=== PATIENT | female | born 1985 | race Caucasian/White ===

== ENCOUNTER 2016-11-22 22:15 | Emergency (ER) | payer OTHER ==
[~2016-11-22] VITALS: Ht 170.2 cm; Wt 99.8 kg
[~2016-11-22 22:15] MED LIST: ALBU17IN INH; LOVE0.8I SC; PERCOCET PO
[2016-11-22 22:16] VITALS: BP 107/53
[2016-11-22] MEDS ORDERED: ELIQ5TAB PO (22:23)
[2016-11-22] MEDS ORDERED: CYCL10TA PO (22:23)
[2016-11-22] MEDS ORDERED: NEUR800T PO (22:23)
[2016-11-22] MEDS ORDERED: ERYTHROMYCIN OPHTH OINT OS ONE (23:00)
[2016-11-22] MEDS ORDERED: ERYTOIN8 OS (23:21)
== END 2016-11-22 23:40 | disposition home or self-care (01) ==
LOC: M ED 23:10
DX: H10.32 Unspecified acute conjunctivitis, left eye (principal)

== ENCOUNTER 2017-03-23 18:20 | Emergency (ER) | payer OTHER ==
[~2017-03-23] VITALS: Ht 170.2 cm; Wt 106.7 kg
[~2017-03-23 18:20] MED LIST changes: +CYCL10TA PO; +ELIQ5TAB PO; +ERYTOIN8 OS; +NEUR800T PO
[2017-03-23 18:21] VITALS: BP 116/71
[2017-03-23] MEDS ORDERED: ALEV220C2 PO (18:40)
[2017-03-23] MEDS ORDERED: KETOROLAC 30 MG/ML VIAL (J1885) IV ONE (21:00)
[2017-03-23] MEDS ORDERED: NS 1,000 ML IV ONE (21:00)
[2017-03-23 21:50] LABS: BASO % 0.4 % (0.0-1.0); EOS # 0.2 K/mm3 (0.0-0.50); EOS % 2.3 % (0.0-3.0); LARGE UNSTAINED CELL # 0.1 K/mm3 (0.0-0.4); LARGE UNSTAINED CELL % 1.2 % (0.0-4.0); MEAN CORPUSCULAR HEMOGLOBIN 31.6 pg (27.0-33.0); MEAN CORPUSCULAR HGB CONC 34.3 g/dl (32.0-36.5); MONO # 0.5 K/mm3 (0.0-0.8); MONO % 4.5 % (0.0-5.0); NEUTROPHILS # 6.9 K/mm3 (1.8-7.7); NEUTROPHILS % 64.5 % (36.0-66.0); PLATELET COUNT, AUTOMATED 202 k/mm3 (150-450); RED CELL DISTRIBUTION WIDTH 14.4 % (11.5-14.5); WHITE BLOOD COUNT 10.7 K/mm3 (4.0-10.0)
[2017-03-23 22:01] LABS: CONTROL LINE HCG INT CTR LINE PRESENT
[2017-03-23 23:08] LABS: INR 1.03
[2017-03-23 23:31] LABS: ANION GAP 5 MEQ/L (8-16); BLOOD UREA NITROGEN 9 MG/DL (7-18); CALCIUM LEVEL 8.3 MG/DL (8.5-10.1); CARBON DIOXIDE LEVEL 26 MEQ/L (21-32); CHLORIDE LEVEL 109 MEQ/L (98-107); CREATININE FOR GFR 0.72 MG/DL (0.55-1.02); GLOMERULAR FILTRATION RATE > 60.0 (>60); GLUCOSE, FASTING 84 MG/DL (70-105); POTASSIUM SERUM 4.4 MEQ/L (3.5-5.1); SODIUM LEVEL 140 MEQ/L (136-145)
[2017-03-24] MEDS ORDERED: ROBA500T PO (13:41)
== END 2017-03-24 00:35 | disposition left against medical advice (07) ==
LOC: M ED 18:20
DX: M54.9 Dorsalgia, unspecified (principal); Z72.0 Tobacco use
CPT/HCPCS: 36415; 80048; 81001; 84703; 85025; 85610; 85730; 87088; 87186; 96374; 99282; J1885

== ENCOUNTER 2017-03-24 10:09 | Emergency (ER) | payer OTHER ==
[~2017-03-24] VITALS: Ht 170.2 cm; Wt 107.4 kg
[~2017-03-24 10:09] MED LIST changes: +ALEV220C2 PO
[2017-03-24] MEDS ORDERED: MORPHINE 4 MG/ML 1ML SYRINGE IV ONE ×2 (10:45→13:00)
[2017-03-24] MEDS ORDERED: NS 1,000 ML IV ONE (10:45)
[2017-03-24] MEDS ORDERED: ONDANSETRON 4MG/2ML VIAL (J2405) IV ONE (10:45)
[2017-03-24 11:16] LABS: BASO % 0.4 % (0.0-1.0); EOS # 0.2 K/mm3 (0.0-0.50); LARGE UNSTAINED CELL # 0.1 K/mm3 (0.0-0.4); LYMPH # 2.3 K/mm3 (1.5-4.5); LYMPH % 25.9 % (24.0-44.0); MEAN CORPUSCULAR HEMOGLOBIN 30.9 pg (27.0-33.0); MEAN CORPUSCULAR HGB CONC 33.7 g/dl (32.0-36.5); MEAN CORPUSCULAR VOLUME 91.7 fl (80.0-96.0); MONO # 0.4 K/mm3 (0.0-0.8); MONO % 4.2 % (0.0-5.0); NEUTROPHILS # 5.8 K/mm3 (1.8-7.7); NEUTROPHILS % 66.6 % (36.0-66.0); PLATELET COUNT, AUTOMATED 210 k/mm3 (150-450); RED CELL DISTRIBUTION WIDTH 14.5 % (11.5-14.5); WHITE BLOOD COUNT 8.7 K/mm3 (4.0-10.0)
[2017-03-24 11:31] LABS: ANION GAP 5 MEQ/L (8-16); BLOOD UREA NITROGEN 11 MG/DL (7-18); CALCIUM LEVEL 8.5 MG/DL (8.5-10.1); CARBON DIOXIDE LEVEL 24 MEQ/L (21-32); CHLORIDE LEVEL 112 MEQ/L (98-107); CREATININE FOR GFR 0.67 MG/DL (0.55-1.02); GLOMERULAR FILTRATION RATE > 60.0 (>60); GLUCOSE, FASTING 98 MG/DL (70-105); POTASSIUM SERUM 4.3 MEQ/L (3.5-5.1); SODIUM LEVEL 141 MEQ/L (136-145)
--- NOTE | 2017-03-24 12:16 | REP ---
CT ABDOMEN AND PELVIS WITHOUT IV CONTRAST: CT abdomen and pelvis performed. No IV contrast was administered. Sagittal and coronal reconstruction images are performed. The visualized lung bases demonstrate mild fibroatelectatic change. Liver appears mildly enlarged with a length of approximately 19 cm. Patient has had a cholecystectomy. The spleen is grossly unremarkable as are the adrenals, pancreas and kidneys. There is no evidence of renal or ureteral calculus and no evidence of hydroureteronephrosis. There is no abdominal aortic aneurysm. There is an IVC filter present. There is no adenopathy, free air or free fluid. No bowel wall thickening is seen. No pelvic mass is seen. Urinary bladder is not well distended and not well evaluated. Left iliac veins appear quite small in size and there are multiple venous collaterals in the anterior abdominal wall at the level of the pelvis. Metallic clips are seen in both adnexal regions. There is no evidence of appendicitis. IMPRESSION: Mild hepatomegaly. No evidence of renal or ureteral calculus and no hydroureteronephrosis. No evidence of appendicitis. No other evidence of acute finding. Signed by Aaron Jiménez MD 03/24/2017 04:41 P
[2017-03-24] MEDS ORDERED: ROBA500T PO (13:41)
[2017-03-24] MEDS ORDERED: METHOCARBAMOL 500 MG TAB PO ONE (13:45)
[2017-03-24 13:56] VITALS: BP 154/74
== END 2017-03-24 13:58 | disposition home or self-care (01) ==
LOC: M ED 10:09
DX: M79.1 Myalgia (principal); M54.5 Low back pain
CPT/HCPCS: 74176; 80048; 81001; 85025; 96361; 96374; 96375; 96376; 99284; J2405

== ENCOUNTER → 2017-04-22 | Outpatient (CLI) | payer OTHER ==
[~2017-04-22] MED LIST changes: +ROBA500T PO
--- NOTE | 2017-04-22 20:10 | REP ---
CHEST, PA AND LATERAL: 04/22/2017. Comparison: 01/29/2016, CT angiogram 01/29/2016. Clinical history: Acute bronchitis symptoms. Findings: Lung licona are mildly hyperinflated. There are perihilar interstitial changes and streaky densities with peribronchial thickening suggesting a bronchitis or reactive airway disease. No dense consolidation with air bronchograms, pleural effusion, parenchymal mass or pulmonary nodules. There is no cardiomegaly, vascular redistribution or pulmonary edema. The aorta and airway are intact. Bony thorax unremarkable. No free air under the diaphragm. Impression: 1. Perihilar changes of bronchitis or reactive airway disease without dense consolidation, effusion, cardiomegaly, edema, atelectasis or mass. Signed by Doyle Rivera MD 04/22/2017 08:12 P
== END ==
LOC: M RAD 17:13
PROVIDERS: ATTEND Physician Assistant Medical
DX: J20.9 Acute bronchitis, unspecified (principal)

== ENCOUNTER 2017-08-13 16:45 | Outpatient (CLI) | payer OTHER ==
[2017-08-14 12:51] LABS: BASO % 0.3 % (0.0-1.0); EOS % 0.2 % (0.0-3.0); HEMATOCRIT 44.9 % (36.0-47.0); HEMOGLOBIN 15.1 g/dl (12.0-16.0); IMMATURE GRANULOCYTE # 0.1 10^3/uL (0-0); IMMATURE GRANULOCYTE % 0.5 % (0-0); MEAN CORPUSCULAR HEMOGLOBIN 29.7 pg (27.0-33.0); MEAN CORPUSCULAR HGB CONC 33.6 g/dl (32.0-36.5); MEAN CORPUSCULAR VOLUME 88.4 fl (80.0-96.0); MONO # 0.7 10^3/uL (0.0-0.8); MONO % 5.2 % (0.0-5.0); NEUTROPHILS # 9.3 10^3/uL (1.8-7.7); NEUTROPHILS % 70.8 % (36.0-66.0); PLATELET COUNT, AUTOMATED 266 10^3/uL (150-450); RED BLOOD COUNT 5.08 10^6/uL (4.00-5.40); RED CELL DISTRIBUTION WIDTH 12.8 % (11.5-14.5); WHITE BLOOD COUNT 13.2 10^3/uL (4.0-10.0)
[2017-08-14 13:00] LABS: APPEARANCE, URINE CLEAR (CLEAR); BACTERIA, URINE AUTO NEGATIVE (NEGATIVE); BILIRUBIN, URINE AUTO NEGATIVE (NEGATIVE); BLOOD, URINE BLOOD NEGATIVE (NEGATIVE); COLOR, URINE YELLOW (YELLOW); GLUCOSE, URINE (UA) AUTO NEGATIVE (NEGATIVE); KETONE, URINE AUTO TRACE mg/dL (NEGATIVE); LEUKOCYTE ESTERASE, URINE AUTO NEGATIVE (NEGATIVE); MUCUS, URINE SMALL (NEGATIVE); NITRITE, URINE AUTO NEGATIVE (NEGATIVE); PROTEIN, URINE AUTO NEGATIVE (NEGATIVE); RBC, URINE AUTO 3 /HPF (0-3); SPECIFIC GRAVITY URINE AUTO 1.021 (1.002-1.035); SQUAMOUS EPITHELIAL CELL UR AU 0 /HPF (0-6); UROBILINOGEN, URINE AUTO 0.2 mg/dL (0.0-2.0); WBC, URINE AUTO 1 /HPF (0-3)
[2017-08-14 13:20] LABS: ALBUMIN/GLOBULIN RATIO 1.14 (1.00-1.93); ALKALINE PHOSPHATASE 105 U/L (45-117); ALT/SGPT 26 U/L (12-78); ANION GAP 7 MEQ/L (8-16); AST/SGOT 11 U/L (7-37); BILIRUBIN,TOTAL 0.3 MG/DL (0.2-1.0); BLOOD UREA NITROGEN 8 MG/DL (7-18); CALCIUM LEVEL 9.5 MG/DL (8.5-10.1); CARBON DIOXIDE LEVEL 25 MEQ/L (21-32); CHLORIDE LEVEL 106 MEQ/L (98-107); CREATININE FOR GFR 0.71 MG/DL (0.55-1.02); GLOMERULAR FILTRATION RATE > 60.0 (>60); GLUCOSE, FASTING 118 MG/DL (70-105); POTASSIUM SERUM 4.2 MEQ/L (3.5-5.1); SODIUM LEVEL 138 MEQ/L (136-145); TOTAL PROTEIN 7.5 GM/DL (6.4-8.2)
[2017-08-14 13:54] LABS: ERYTHROCYTE SEDIMENTATION RATE 5 mm/hr (0-20)
[2017-08-22 00:07] LABS: ANCA-ATYPICAL <1:20 titer (Neg:<1:20); CYTOPLASMIC NEUTROP AB ANCA-C <1:20 titer (Neg:<1:20); HLA-B27 Negative (.); PERINUCLEAR AB ANCA-P <1:20 titer (Neg:<1:20)
== END 2017-08-14 ==
LOC: M LAB 16:45
DX: L95.9 Vasculitis limited to the skin, unspecified (principal)
CPT/HCPCS: 80053

== ENCOUNTER → 2017-09-03 | Outpatient (REF) | payer OTHER ==
[2017-09-05 14:15] LABS: ANTI DOUBLE STRAND-DNA AB 2 IU/mL (0-9); ANTINUCLEAR ANTIBODIES DIRECT Negative (Negative)
== END ==
LOC: M LAB REF 17:27
DX: D68.69 Other thrombophilia (principal)

== ENCOUNTER → 2018-11-03 | Outpatient (REF) | payer OTHER ==
[2018-11-03 13:59] LABS: INR 1.04; PROTHROMBIN TIME 13.7 SECONDS (12.1-14.4)
[2018-11-03 14:00] LABS: PARTIAL THROMBOPLASTIN TIME 26.3 SECONDS (25.4-37.6)
[2018-11-03 14:01] LABS: ALBUMIN 3.8 GM/DL (3.2-5.2); ALT/SGPT 32 U/L (12-78); BILIRUBIN,TOTAL 0.4 MG/DL (0.2-1.0); BLOOD UREA NITROGEN 9 MG/DL (7-18); CALCIUM LEVEL 8.4 MG/DL (8.5-10.1); CARBON DIOXIDE LEVEL 27 MEQ/L (21-32); CHLORIDE LEVEL 107 MEQ/L (98-107); CHOLESTEROL LEVEL 101 MG/DL (<200); CHOLESTEROL RISK RATIO 2.805 (<5); CREATININE FOR GFR 0.62 MG/DL (0.55-1.30); FREE T4 0.99 NG/DL (0.76-1.46); GLOMERULAR FILTRATION RATE > 60.0 (>60); GLUCOSE, FASTING 73 MG/DL (70-100); HDL CHOLESTEROL 36 MG/DL (>40); LDL CHOLESTEROL 51 MG/DL (<100); NON-HDL-C 65 MG/DL; POTASSIUM SERUM 4.2 MEQ/L (3.5-5.1); SODIUM LEVEL 139 MEQ/L (136-145); THYROID STIMULATING HORMONE 0.946 uIU/ML (0.358-3.740); TOTAL PROTEIN 6.6 GM/DL (6.4-8.2); TRIGLYCERIDES LEVEL 72 MG/DL (<150)
[2018-11-03 14:24] LABS: HEMOGLOBIN A1c 5.1 %
[2018-11-03 15:18] LABS: BASO # 0.1 10^3/uL (0.0-0.2); BASO % 0.7 % (0.0-1.0); EOS # 0.1 10^3/uL (0.0-0.50); EOS % 1.7 % (0.0-3.0); HEMATOCRIT 44.2 % (36.0-47.0); HEMOGLOBIN 14.6 g/dl (12.0-15.5); LYMPH % 35.2 % (24.0-44.0); MEAN CORPUSCULAR HEMOGLOBIN 30.2 pg (27.0-33.0); MEAN CORPUSCULAR VOLUME 91.3 fl (80.0-96.0); MONO # 0.6 10^3/uL (0.0-0.8); MONO % 6.5 % (0.0-5.0); NEUTROPHILS # 4.7 10^3/uL (1.8-7.7); NEUTROPHILS % 55.5 % (36.0-66.0); PLATELET COUNT, AUTOMATED 231 10^3/uL (150-450); RED BLOOD COUNT 4.84 10^6/uL (4.00-5.40); WHITE BLOOD COUNT 8.4 10^3/uL (4.0-10.0)
== END ==
LOC: M SFHCPLAZ 10:32
PROVIDERS: ATTEND Nurse Practitioner Family
DX: Z13.228 Encounter for screening for other metabolic disorders (principal); Z86.711 Personal history of pulmonary embolism; J45.40 Moderate persistent asthma, uncomplicated

== ENCOUNTER 2018-11-29 14:15 | Outpatient (RCR) | payer OTHER | END 2018-11-30 | LOC: M PT 14:15 | PROVIDERS: ATTEND Nurse Practitioner Family | DX: M79.605 Pain in left leg (principal) ==

== ENCOUNTER 2018-12-16 15:00 | Outpatient (RCR) | payer OTHER | END 2018-12-31 | LOC: M PT 15:00 | PROVIDERS: ATTEND Nurse Practitioner Family | DX: M79.605 Pain in left leg (principal) ==

== ENCOUNTER 2019-01-06 13:12 | Inpatient (IN) | payer OTHER ==
[~2019-01-06] VITALS: Ht 170.2 cm; Wt 97.2 kg
[2019-01-06 14:34] LABS: BASO # 0.1 10^3/uL (0.0-0.2); BASO % 0.5 % (0.0-1.0); EOS # 0.4 10^3/uL (0.0-0.50); EOS % 3.4 % (0.0-3.0); HEMATOCRIT 41.9 % (36.0-47.0); HEMOGLOBIN 14.1 g/dl (12.0-15.5); LYMPH # 2.5 10^3/uL (1.5-4.5); LYMPH % 23.4 % (24.0-44.0); MEAN CORPUSCULAR HEMOGLOBIN 30.9 pg (27.0-33.0); MEAN CORPUSCULAR HGB CONC 33.7 g/dl (32.0-36.5); MEAN CORPUSCULAR VOLUME 91.7 fl (80.0-96.0); MONO # 0.8 10^3/uL (0.0-0.8); MONO % 7.2 % (0.0-5.0); NEUTROPHILS # 6.9 10^3/uL (1.8-7.7); NEUTROPHILS % 64.9 % (36.0-66.0); PLATELET COUNT, AUTOMATED 180 10^3/uL (150-450); RED BLOOD COUNT 4.57 10^6/uL (4.00-5.40); WHITE BLOOD COUNT 10.7 10^3/uL (4.0-10.0)
[2019-01-06] MEDS ORDERED: ONDANSETRON 4MG/2ML VIAL (J2405) IV ONE ×2 (14:45→17:15)
[2019-01-06] MEDS ORDERED: NS 1,000 ML IV ONE (14:45)
[2019-01-06] MEDS ORDERED: MORPHINE 4 MG/ML 1ML VIAL/SYRINGE (J2270) IV ONE ×2 (14:45→17:15)
[2019-01-06 14:59] LABS: BLOOD UREA NITROGEN 11 MG/DL (7-18); CALCIUM LEVEL 8.2 MG/DL (8.5-10.1); CARBON DIOXIDE LEVEL 26 MEQ/L (21-32); CHLORIDE LEVEL 108 MEQ/L (98-107); CREATININE FOR GFR 0.68 MG/DL (0.55-1.30); GLOMERULAR FILTRATION RATE > 60.0 (>60); GLUCOSE, FASTING 78 MG/DL (70-100); POTASSIUM SERUM 4.9 MEQ/L (3.5-5.1); SODIUM LEVEL 139 MEQ/L (136-145)
--- NOTE | 2019-01-06 15:57 | REP ---
CT ABDOMEN AND PELVIS WITHOUT IV CONTRAST: CT abdomen and pelvis performed without oral or IV contrast. Sagittal and coronal reconstruction images are performed. Visualized lung bases demonstrate mild fibroatelectatic change. The liver is grossly unremarkable. The patient has had a prior cholecystectomy. Spleen, adrenals, and pancreas are grossly unremarkable. The kidneys demonstrate no hydronephrosis or nephrolithiasis. There is no abdominal aortic aneurysm. There is an inferior vena cava filter present just below the level of the right renal vein. Prominent right iliac veins are present. Tiny left iliac veins are present. Multiple venous collateral vessels are seen in the anterior wall of the pelvis superficially and also in the anterior abdominal wall. I see no adenopathy, free air, or free fluid. There is no bowel wall thickening. The appendix is normal. I see no pelvic mass. A metallic clip is seen in each adnexal region. The urinary bladder is mildly distended and grossly unremarkable. There is edema and/or inflammation in the deep pelvic fat predominantly in the right adnexal region. The findings are seen to a lesser extent in the deep left pelvis. The findings may represent pelvic inflammatory disease or venous congestion. IMPRESSION: Inferior vena cava filter present. There are prominent right iliac veins which are fairly large in caliber. There are tiny left iliac veins. Multiple venous collateral vessels are seen in the anterior superficial abdominal wall and pelvic wall. Streaky edema/inflammation of the deep pelvic fat more so on the right than on the left may indicate pelvic inflammatory disease or venous congestion in the pelvis. No evidence of mass or free fluid. Electronically Signed by Aaron Jiménez MD 01/10/2019 04:57 P
[2019-01-06] MEDS ORDERED: ISOVUE-370 76% 100ML VIAL (Q9967) As Ordered ONE (16:48)
[2019-01-06] MEDS ORDERED: HEPARIN DRIP 25,000 UNITS in APPROPRIATE DILUENT 1 EA IV SCH ×2 (17:33→18:48)
[2019-01-06] MEDS ORDERED: HEPARIN SOD (PORCINE) 5000 UNITS/ML VIAL IV ONE (17:45)
[2019-01-06] MEDS ORDERED: HEPARIN SOD (PORCINE) 5000 UNITS/ML VIAL IV STA (17:48)
--- NOTE | 2019-01-06 17:56 | REP ---
HISTORY: Pelvic pain. Secondary to the patient's complaints of pain, bilateral ovarian Doppler was obtained. Transvesical and transvaginal imaging was obtained. The uterus measures 11.2 x 4.9 x 7 cm. The parenchymal echo pattern is within normal limits. The endometrial echo complex measures 7 mm in thickness. There is no free fluid in the endometrial cavity. Neither right or left ovary was seen either transvesically or transvaginally. IMPRESSION: No intrapelvic abnormality on this limited exam without visualization of either ovary. Electronically Signed by Nael Amaral DO 01/06/2019 06:07 P
--- NOTE | 2019-01-06 17:58 | REP ---
HISTORY: Pain. Bilateral thigh pain and pelvic pain. There is abnormal echogenic material seen in the common femoral vein bilaterally, the ponce of which do not coapt. This abnormal echogenic material extends into the greater saphenous vein bilaterally. IMPRESSION: Deep vein thrombosis bilaterally in the common femoral vein and greater saphenous vein. Electronically Signed by Nael Amaral DO 01/06/2019 06:07 P
[2019-01-06] MEDS ORDERED: MORPHINE 4 MG/ML 1ML VIAL/SYRINGE (J2270) IV PRN (18:00)
[2019-01-06] MEDS ORDERED: FAMOTIDINE IV BAG 20 MG in APPROPRIATE DILUENT 1 EA IV SCH (18:00)
[2019-01-06] MEDS ORDERED: ACET-897 PO (18:06)
[2019-01-06] MEDS ORDERED: VENTAER INH (18:06)
--- NOTE | 2019-01-06 18:23 | REP ---
HISTORY: Dyspnea. Positive bilateral thigh DVT. COMPARISON: 01/29/2016 CONTRAST: 100 mL [id number] There is good visualization of the pulmonary arterial vasculature. There are no abnormal focal filling defects present that would be considered consistent with pulmonary emboli. There is no mediastinal or hilar adenopathy. There are no pleural or pericardial effusions. The imaged upper abdomen and images osseous structures are within normal limits. Evaluation of the lung licona show a few scattered bibasilar opacities, likely subsegmental atelectatic changes. IMPRESSION: 1. There is no evidence of a pulmonary embolus. 2. Suspected subsegmental atelectatic changes in the lung bases, however, these are essentially unchanged compared to the prior CT of 01/29/2016 and may at least in part represent chronic fibrotic changes. Electronically Signed by Nael Amaral DO 01/06/2019 07:44 P
[2019-01-06] MEDS ORDERED: HEPARIN SOD (PORCINE) 5000 UNITS/ML VIAL IV PRN (19:00)
[2019-01-06 20:08] VITALS: BP 122/58
[2019-01-06] MEDS: NS 1,000 ML IV SCH (20:18)
[2019-01-06] MEDS ORDERED: PERCOCET 5MG/325MG TAB PO PRN ×2 (20:45)
[2019-01-06] MEDS ORDERED: IPRATROPIUM 0.5MG/ALBUTEROL 2.5MG INH SOL UD 3ML (DUONEB)(J7620) NEB PRN (20:45)
[2019-01-06 21:00] VITALS: BP 118/65
[2019-01-06] MEDS ORDERED: CHLORHEXIDINE GLUCONATE 0.12 % 15ML UDC (PERIDEX ORAL RINSE) MT SCH (21:00)
[2019-01-06] MEDS: GABAPENTIN 400 MG CAP PO SCH (21:13)
--- NOTE | 2019-01-06 21:47 | HPEPDOC ---
General Date of Admission Jan 06, 2019 at 17:48 Date of Service: Jan 06, 2019 Primary Care Physician: BLADE DYSON Attending Physician: NELSON MUHAMMAD MD Chief Complaint The patient is a 33-year-old female admitted with a reason for visit of Dvt, Vaginal Bleeding. Source: Patient, Old records Timing/Duration: 24 hours Associated Symptoms: Headaches, Weakness History of Present Illness Ms. Hunt is a 33-year-old female who presents to [facility] Emergency Department with pelvic pain. Patient states that she woke up yesterday feeling as though someone had "kicked her in the crotch." She denies any inciting event. She states that since then she has found it incredibly difficult to walk due to excessive pain. She took Flexeril and Tylenol and went to bed. When she woke up this morning she could not walk due to excruciating pain. She felt as though she was going to pass out, but did not. She admits to pain in her both buttocks with pain radiating down her right leg. She has noticed a change in color to her right leg since exiting ultrasound. She has not noticed any abnormal swelling besides that in her groin/pubic area. She describes numbness and tingling in her toes bilaterally and feels weak throughout. She is not short of breath, describe shortness of breath in the supine position, wake up at night short of breath, or having chest pain. Patient states that she has anti-thrombin III deficiency and is prone to clot fo rmation. She was diagnosed with ATIII deficiency in 2015. She has had recurrent blood clots in her legs as well as her lungs. She has sustained a stroke without residual deficits. She is currently on Eliquis and has an IVC filter in place which was placed in 2012. She was on Lovenox during her pregnancies in 2010 and 2014. She has one documented miscarriage and one termination. There was concern for vaginal bleeding, but patient states that she is on her menstrual cycle. She usually menstruates for 4-5 days and uses a box of [employer]plus tampons over 1.5 days. Her menstrual cycle was actually 4 days late this cycle. She is sexually active with her fiancee and had sex 4 days ago. They did not use protection. She partakes in oral sex, but no anal sex. She has been screened previously for HIV and GC/Chlamydia which she reports as negative and is willing to be tested again. She describes a headache and was recently treated herself with [id number] medications for a sinus infection. She states that her daughter was recently sick with a sinus infection as well. She does not describe a sore throat or a cough. Admits to night sweats and chills without a documented fever. Furthermore, describes blurry vision, but only with change in position. Emergency Department reveals stable vital signs. She has a very mild neutrophilic leukocytosis of 10.7. Pelvic ultrasound revealed "No intrapelvic abnormality on this limited exam without visualization of either ovary." CT abdomen and pelvis without contrast revealed "Inferior vena cava filter present. There are prominent right iliac veins which are fairly large in caliber. There are tiny left iliac veins. Multiple venous collateral vessels are seen in the anterior superficial abdominal wall and pelvic wall. Streaky edema/inflammation of the deep pelvic fat more so on the right than on the left may indicate pelvic inflammatory disease or venous congestion in the pelvis. No evidence of mass or free fluid." Bilateral lower extremity duplex revealed "Deep vein thrombosis bilaterally in the common femoral vein and greater saphenous vein." CT chest angiogram revealed "There is no evidence of a pulmonary embolus. Suspected subsegmental atelectatic changes in the lung bases, however, these are ess entially unchanged compared to the prior CT of 01/29/2016 and may at least in part represent chronic fibrotic changes." Hospitalist service was consulted and patient was admitted for further medical management. Home Medications Scheduled Apixaban (Eliquis) 5 Mg Tab, 5 MG PO BID, (Reported) Gabapentin (Neurontin) 800 Mg Tab, 800 MG PO TID, (Reported) Scheduled PRN Acetaminophen (Tylenol Extra Strength) 500 Mg Tablet, 1,000 MG PO TID PRN for PAIN, (Reported) Albuterol Sulfate (Ventolin Hfa) 18 Gm Hfa.aer.ad, 2 PUFF INH Q4H PRN for SHORTNESS OF BREATH, (Reported) Cyclobenzaprine HCl (Cyclobenzaprine HCl) 10 Mg Tab, 10 MG PO TID PRN for MUSCLE SPASMS, (Reported) Allergies Coded Allergies: Penicillins (Verified Allergy, Severe, anaphylaxis, 11/04/18) clindamycin (Verified Allergy, Mild, rash, 6/6/19) cephalexin (Verified Adverse Reaction, Intermediate, SEVERE YEAST INFECTION, 01/06/19) Past Medical History Medical History 1. Anti-thrombin III deficiency 2. Recurrent thromboembolic disease 3. Asthma 4. Recurrent DVT s/p IVC filter 5. Tobacco dependence 6. Pulmonary embolism Surgical History 1. CS - 2006, 2008, 2010, 2014 2. Stillborn vaginal delivery - 2007 3. Miscarriage - 2012 4. Termination of - 2013 5. Cholecystectomy 6. IVC filter placement 7. Tubal ligation 8. Tonsillectomy and adenoidectomy Family History Father: Alive, 59, seizure disorder, blood clot in brain Mother: Aliver, 56, anti-thrombin III deficiency Siblings - Sister: x1, alive, 34, anti-thrombin III deficiency Social History * Smoker: current smoker (36 pack year history) Alcohol: rarely Drugs: marijuana Pets in the home: Dog(s) (x3), Other (5x bearded dragons, 2x indonesian water dragons, 7x fish tanks, 2x geckos, 1x boa constrictor) Lives independently with lily and her four children. Patient states that she is disabled due to her recurrent DVTs. She has many pets in the home. She is an every day smoker of 1.5 packs per day. She started smoking when she was 9 years old. She rarely consumes EtOH. She smokes "a lot of pot." A-FIB/CHADSVASC A-FIB History Current/History of A-Fib/PAF?: No Review of Systems Constitutional: Reports: Chills, Night Sweats, Weakness; Denies: Fever Eyes: Reports: Vision change (blurry vision with change in position); Denies: Conjunctivae inflammation, Eyelid inflammation ENT: Reports: Head Aches, Sinus Congestion; Denies: Dysphagia, Post Nasal Drip, Sore Throat, Epistaxis Skin: Denies: Rash, Lesions Pulmonary: Denies: Dyspnea, Cough, Pleuritic Chest Pain Cardiovascular: Reports: Edema (groin); Denies: Chest Pain, Palpitations, Orthopnea, Paroxysmal Noc. Dyspnea, Lt Headedness Gastrointestinal: Reports: Abdominal Pain (lower pelvic pain); Denies: Nausea, Vomiting, Diarrhea, Constipation, Melena, Hematochezia Genitourinary: Reports: Other Symptoms (currently on menstrual cycle); Denies: Dysuria, Frequency, Incontinence, Hematuria, Retention Hematologic: Denies: Bruising, Bleeding Excessively Musculoskeletal: Reports: Back Pain; Denies: Neck Pain, Joint Pain, Muscle Pain Neurological: Reports: Weakness, Numbness (B/L toes) Physical Examination General Exam: Positive: Alert, Cooperative, Mild Distress Eye Exam: Positive: PERRLA, Conjunctiva & lids normal, EOMI; Negative: Sclera icteric, Ptosis ENT Exam: Positive: Atraumatic, Mucous membr. moist/pink, Pharynx Normal, Tongue Midline, Nares Patent, Other ENT (abrasion noted on top lip adjacent to vermillon border); Negative: Pharyngeal Edema Neck Exam: Positive: Supple, +2 carotid pulse wo bruit; Negative: JVD, thyromegaly, Lymphadenopathy Chest Exam: Positive: Wheezing (inspiratory and expiratory); Negative: Clear to auscultation, Normal air movement, Rales, Rhonchi, Diminished Heart Exam: Positive: Rate Normal, Regular Rhythm, Normal S1, Normal S2; Negative: Gallops, Murmurs, Rubs Abdomen Exam: Positive: Normal bowel sounds, Soft, Tenderness (lower pelvic region), Other (umblicial jewelry, erythema and edema noted on mons pubis with many isolated nodular papular lesoins below the epidermis which are painful to palpation); Negative: Hepatospenomegaly, Mass, Hernia Extremity Exam: Positive: Normal pulses; Negative: Clubbing, Cyanosis, Edema, Tenderness, Swelling Skin Exam: Positive: Other skin issue (mottling noted to right lower extremity); Negative: Rash, Lesion Neuro Exam: Positive: Normal Speech, Cranial Nerves 3-12 NL; Negative: Strength at 5/5 X4 ext (4/5 muscle strength noted in RLE) Psych Exam: Positive: Oriented x 3 Other physical findings 1. Non-OB complete pelvic ultrasound - No intrapelvic abnormality on this limited exam without visualization of either ovary. 2. CT abdomen and pelvis without contrast - Inferior vena cava filter present. There are prominent right iliac veins which are fairly large in caliber. There are tiny left iliac veins. Multiple venous collateral vessels are seen in the anterior superficial abdominal wall and pelvic wall. Streaky edema/inflammation of the deep pelvic fat more so on the right than on the left may indicate pelvic inflammatory disease or venous congestion in the pelvis. No evidence of mass or free fluid. 3. Bilateral lower extremity duplex - Deep vein thrombosis bilaterally in the common femoral vein and greater saphenous vein. 4. CT chest angiogram - There is no evidence of a pulmonary embolus. Suspected subsegmental atelectatic changes in the lung bases, however, these are essentially unchanged compared to the prior CT of 01/29/2016 and may at least in part represent chronic fibrotic changes. Vital Signs Vital Signs Date Time Temp Pulse Resp B/P (MAP) Pulse Ox O2 Delivery O2 Flow Rate FiO2 01/06/19 20:18 20 99 01/06/19 14:27 96 116/68 (84) 01/06/19 13:13 97.4 Room Air Height (in): 67 Weight (kg): 95.3 BMI (kg): 32.9 Laboratory Data Labs 24H Laboratory Tests 2 01/06/19 14:20: Immature Granulocyte % (Auto) 0.6, White Blood Count 10.7H, Red Blood Count 4.57, Hemoglobin 14.1, Hematocrit 41.9, Mean Corpuscular Volume 91.7, Mean Corpuscular Hemoglobin 30.9, Mean Corpuscular Hemoglobin Concent 33.7, Red Cell Distribution Width 13.1, Platelet Count 180, Neutrophils (%) (Auto) 64.9, Lymphocytes (%) (Auto) 23.4L, Monocytes (%) (Auto) 7.2H, Eosinophils (%) (Auto) 3.4H, Basophils (%) (Auto) 0.5, Neutrophils # (Auto) 6.9, Lymphocytes # (Auto) 2.5, Monocytes # (Auto) 0.8, Eosinophils # (Auto) 0.4, Basophils # (Auto) 0.1, Nucleated Red Blood Cells % (auto) 0.0, Anion Gap 5L, Glomerular Filtration Rate > 60.0, Blood Urea Nitrogen 11, Creatinine 0.68, Sodium Level 139, Potassium Level 4.9, Chloride Level 108H, Carbon Dioxide Level 26, Calcium Level 8.2L CBC/BMP Laboratory Tests 01/06/19 14:20 Red Blood Count 4.57, Mean Corpuscular Volume 91.7, Mean Corpuscular Hemoglobin 30.9, Mean Corpuscular Hemoglobin Concent 33.7, Red Cell Distribution Width 13.1, Neutrophils (%) (Auto) 64.9, Lymphocytes (%) (Auto) 23.4 L, Monocytes (%) (Auto) 7.2 H, Eosinophils (%) (Auto) 3.4 H, Basophils (%) (Auto) 0.5, Neutrophils # (Auto) 6.9, Lymphocytes # (Auto) 2.5, Monocytes # (Auto) 0.8, Eosinophils # (Auto) 0.4, Basophils # (Auto) 0.1, Calcium Level 8.2 L Plan / VTE VTE Prophylaxis Ordered?: Yes (Heparin drip) Plan Plan 1. Bilateral lower extremity DVT 2/2 anti-thrombin III deficiency IVC filter in place Heparin drip, Eliquis on hold Vascular surgery consulted, Dr. Winn, for possible thrombolysis tomorrow Morphine, Gabapentin, Percocet, and Tylenol for pain control Monitor daily labs NPO for possible procedure tomorrow 2. Pelvic pain Possible PID noted on CT abdomen and pelvis? STD work-up Pain control 3. Asthma Douneb's scheduled and as needed Disposition Admit: ICU Anticipated hospitalization: 2 nights IVF: Initiate (NS @ 100 mLs/hr) Diet: Make NPO Activity: Bedrest Therapy: PT Medications: Increase Pain Meds (Morphine 2mg IV Q2HP, Percocet Q4HP) Diagnostics: Check Labs, Repeat Labs in AM Anticipated Discharge: Home GME ATTESTATION GME ATTESTATION My faculty preceptor for this patient encounter was physically present during the encounter and was fully available. All aspects of the patient interview, examination, medical decision making process, and medical care plan development were reviewed and approved by the faculty preceptor. The faculty preceptor is aware and concurs with the plan as stated in the body of this note and will attest to such by his/her cosignature. ATTENDING NOTE ATTENDING ATTESTATION: I performed a history and physical examination of the patient and discuss the management with the resident/PLUMBER GASFITTER. I reviewed the resident's note and agree with the documented findings and plan of care. KAYDEN DIXON DO Jan 06, 2019 21:47 NELSON MUHAMMAD MD Jan 08, 2019 00:27
[2019-01-06 22:00] VITALS: BP 112/63
[2019-01-06] MEDS: MORPHINE 4 MG/ML 1ML VIAL/SYRINGE (J2270) IV PRN (22:33)
[2019-01-06] MEDS: SIMETHICONE 80 MG CHEW TAB PO PRN (22:57)
[2019-01-06 23:00] VITALS: BP 115/55
[2019-01-07] VITALS (18 sets, daily range): BP systolic 94–135; BP diastolic 54–77
[2019-01-07] MEDS: MORPHINE 4 MG/ML 1ML VIAL/SYRINGE (J2270) IV PRN ×5 (01:33→20:34)
[2019-01-07] MEDS: IPRATROPIUM 0.5MG/ALBUTEROL 2.5MG INH SOL UD 3ML (DUONEB)(J7620) NEB SCH ×4 (01:39→19:23)
[2019-01-07] MEDS ORDERED: MORPHINE 4 MG/ML 1ML VIAL/SYRINGE (J2270) IV ONE (01:45)
[2019-01-07] MEDS: SIMETHICONE 80 MG CHEW TAB PO PRN (02:22)
[2019-01-07] MEDS: LORazepam 2 MG/ML VIAL (J2060) IV PRN ×2 (02:23→22:40)
[2019-01-07 04:24] LABS: HEMOGLOBIN 12.2 g/dl (12.0-15.5); MEAN CORPUSCULAR HEMOGLOBIN 29.9 pg (27.0-33.0); MEAN CORPUSCULAR VOLUME 90.7 fl (80.0-96.0); PLATELET COUNT, AUTOMATED 168 10^3/uL (150-450); RED BLOOD COUNT 4.08 10^6/uL (4.00-5.40); WHITE BLOOD COUNT 9.6 10^3/uL (4.0-10.0)
[2019-01-07] MEDS: NS 1,000 ML IV SCH (04:44)
[2019-01-07 04:49] LABS: BLOOD UREA NITROGEN 6 MG/DL (7-18); CALCIUM LEVEL 7.9 MG/DL (8.5-10.1); CARBON DIOXIDE LEVEL 24 MEQ/L (21-32); CHLORIDE LEVEL 107 MEQ/L (98-107); CREATININE FOR GFR 0.58 MG/DL (0.55-1.30); GLOMERULAR FILTRATION RATE > 60.0 (>60); GLUCOSE, FASTING 91 MG/DL (70-100); POTASSIUM SERUM 3.6 MEQ/L (3.5-5.1); SODIUM LEVEL 138 MEQ/L (136-145)
--- NOTE | 2019-01-07 09:17 | CR.PDOC ---
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 States she was diagnosed with ATIII deficiency in 2015. She has had recurrent blood clots in her legs as well as her lungs. She has sustained a stroke withou t residual deficits. She is currently on Eliquis and has an IVC filter in place which was placed in 2012. She was on Lovenox during her pregnancies in 2010 and 2014. States she has previously failed Coumadin, per pt she was previously on Coumadin in the past but was taking very large doses (20 mg po BID per pt) without therpeutic INR. The pt was found to have BLE DVT, vascular surgery consulted. Reports LE edema and erythema RLE. Denies any fevers, chills, weakness, fatigue, Headache, Chest Pain, Shortness of breath, cough, palpitations, abdominal pain, N/V/D or changes in bowel or harsh dder habits. Medical History Anti-thrombin III deficiency. On Eliquis AC Recurrent thromboembolic disease Asthma Recurrent DVT s/p IVC filter Tobacco dependence Pulmonary embolism H/O CVA, no residual effect. Surgical History CS - 2006, 2008, 2010, 2014 Stillborn vaginal delivery - 2007 Miscarriage - 2012 Termination of - 2013 Cholecystectomy IVC filter placement Tubal ligation Tonsillectomy and adenoidectomy SOCHX: Father: Alive, 59, seizure disorder, blood clot in brain Mother: Aliver, 56, anti-thrombin III deficiency Siblings Sister x1, alive, 34, anti-thrombin III deficiency Social History Smoker: current smoker (36 pack year history) Alcohol: rarely Drugs: marijuana ROS: As noted in HPI, otherwise 11pt ROS of systems reviewed and remarkable only for LMP 01/06/19. PE: GEN: 33yoF, appears stated age. Well-nourished, well developed. No acute distress. Alert and oriented x 3. Pleasant, interactive. HEENT: Normocephalic, atraumatic. Sclera are nonicteric. Conjunctiva without injection. No facial asymmetry. Moist mucous membranes. CHEST: Regular rate and rhythm, +S1, +S2 LUNGS: Clear to auscultation bilaterally. No wheezes, rales, or rhonchi. Breathing appears symmetric and easy. Patient is speaking in full sentences. ABD: Round, soft, non-tender, non-distended. +Bowel sounds throughout. No rebound or guarding. No costovertebral angle tenderness. EXT: Pulses 2+ bilaterally dorsalis pedis and radial. Appears to have generalized swelling and erythema RLE. No warmth, mild TTP. SKIN: [place], dry, warm. Capillary refill <2sec. No rashes. NEURO: Alert and oriented x 3. Cranial nerves III-XII are intact. No focal deficits appreciated. Imaging. 1. Non-OB complete pelvic ultrasound - No intrapelvic abnormality on this limited exam without visualization of either ovary. 2. CT abdomen and pelvis without contrast - Inferior vena cava filter present. There are prominent right iliac veins which are fairly large in caliber. There are tiny left iliac veins. Multiple venous collateral vessels are seen in the anterior superficial abdominal wall and pelvic wall. Streaky edema/inflammation of the deep pelvic fat more so on the right than on the left may indicate pelvic inflammatory disease or venous congestion in the pelvis. No evidence of mass or free fluid. 3. Bilateral lower extremity duplex - Deep vein thrombosis bilaterally in the common femoral vein and greater saphenous vein. 4. CT chest angiogram - There is no evidence of a pulmonary embolus. Suspected subsegmental atelectatic changes in the lung bases, however, these are essentially unchanged compared to the prior CT of 01/29/2016 and may at least in part represent chronic fibrotic changes. A&P: 1. Bilateral lower extremity DVT 2/2 anti-thrombin III deficiency IVC filter in place Continue Heparin drip per protocol Eliquis on hold Tentative plan for thrombolysis as per Dr Winn. Pt denies any bleeding with exception for LMP which started 01/06/19. pain control Monitor labs. Hgb 12.2. NPO 2. anti-thrombin III deficiency. Heparin gtt, Eliquis on hold. States has previously been on Coumadin in past but despite high doses was not therapeutic. Follows as outpt with [facility] Hematology, previously saw Dr Steward. Since pt has failed both Coumadin and NOAC, she will likely require lifelong Lovenox. 3. H/O recurrent DVT/PE, S/P IVC filter 2012. Thank you for your consultation. We will continue to follow along with you. Vital Signs/I&O Vital Signs Date Time Temp Pulse Resp B/P (MAP) Pulse Ox O2 Delivery O2 Flow Rate FiO2 01/07/19 08:00 79 16 107/57 (74) 94 01/07/19 07:00 97.9 01/06/19 13:13 Room Air I&O- Last 24 Hours up to 6 AM 01/07/19 06:00 Intake Total 2612.6 ml Output Total 700 ml Balance 1912.6 ml Laboratory Data Labs 24H Laboratory Tests 2 01/06/19 14:20: Immature Granulocyte % (Auto) 0.6, White Blood Count 10.7H, Red Blood Count 4.57, Hemoglobin 14.1, Hematocrit 41.9, Mean Corpuscular Volume 91.7, Mean Corpuscular Hemoglobin 30.9, Mean Corpuscular Hemoglobin Concent 33.7, Red Cell Distribution Width 13.1, Platelet Count 180, Neutrophils (%) (Auto) 64.9, Lymphocytes (%) (Auto) 23.4L, Monocytes (%) (Auto) 7.2H, Eosinophils (%) (Auto) 3.4H, Basophils (%) (Auto) 0.5, Neutrophils # (Auto) 6.9, Lymphocytes # (Auto) 2.5, Monocytes # (Auto) 0.8, Eosinophils # (Auto) 0.4, Basophils # (Auto) 0.1, Nucleated Red Blood Cells % (auto) 0.0, Anion Gap 5L, Glomerular Filtration Rate > 60.0, Blood Urea Nitrogen 11, Creatinine 0.68, Sodium Level 139, Potassium Level 4.9, Chloride Level 108H, Carbon Dioxide Level 26, Calcium Level 8.2L 01/06/19 21:11: Activated Partial Thromboplast Time 129.8*H 01/07/19 04:02: Nucleated Red Blood Cells % (auto) 0.0, Anion Gap 7L, Glomerular Filtration Rate > 60.0, Blood Urea Nitrogen 6L, Creatinine 0.58, Sodium Level 138, Potassium Level 3.6#, Chloride Level 107, Carbon Dioxide Level 24, Calcium Level 7.9L, Activated Partial Thromboplast Time 40.9H CBC/BMP Laboratory Tests 01/06/19 14:20 Red Blood Count 4.57, Mean Corpuscular Volume 91.7, Mean Corpuscular Hemoglobin 30.9, Mean Corpuscular Hemoglobin Concent 33.7, Red Cell Distribution Width 13.1, Neutrophils (%) (Auto) 64.9, Lymphocytes (%) (Auto) 23.4 L, Monocytes (%) (Auto) 7.2 H, Eosinophils (%) (Auto) 3.4 H, Basophils (%) (Auto) 0.5, Neutrophils # (Auto) 6.9, Lymphocytes # (Auto) 2.5, Monocytes # (Auto) 0.8, Eosinophils # (Auto) 0.4, Basophils # (Auto) 0.1, Calcium Level 8.2 L 01/07/19 04:02 Red Blood Count 4.08, Mean Corpuscular Volume 90.7, Mean Corpuscular Hemoglobin 29.9, Mean Corpuscular Hemoglobin Concent 33.0, Red Cell Distribution Width 13.2, Calcium Level 7.9 L Allergies Coded Allergies: Penicillins (Verified Allergy, Severe, anaphylaxis, 11/04/18) clindamycin (Verified Allergy, Mild, rash, 01/06/19) cephalexin (Verified Adverse Reaction, Intermediate, SEVERE YEAST INFECTION, 01/06/19) Home Medications Scheduled Apixaban (Eliquis) 5 Mg Tab, 5 MG PO BID, (Reported) Gabapentin (Neurontin) 800 Mg Tab, 800 MG PO TID, (Reported) Scheduled PRN Acetaminophen (Tylenol Extra Strength) 500 Mg Tablet, 1,000 MG PO TID PRN for PAIN, (Reported) Albuterol Sulfate (Ventolin Hfa) 18 Gm Hfa.aer.ad, 2 PUFF INH Q4H PRN for SHORTNESS OF BREATH, (Reported) Cyclobenzaprine HCl (Cyclobenzaprine HCl) 10 Mg Tab, 10 MG PO TID PRN for MUSCLE SPASMS, (Reported) Grace Tapia Jan 07, 2019 09:17
[2019-01-07] MEDS: GABAPENTIN 400 MG CAP PO SCH ×3 (09:55→20:33)
[2019-01-07] MEDS: CYCLOBENZAPRINE 10 MG TAB PO PRN ×2 (09:55→22:40)
[2019-01-07] MEDS: HEPARIN DRIP 25,000 UNITS in APPROPRIATE DILUENT 1 EA IV SCH (10:18)
[2019-01-07 11:00] LABS: HIV 1&2 SCREEN CENTAUR NEGATIVE (NEGATIVE)
[2019-01-07 12:06] LABS: HCG, SERUM QUALITATIVE NEGATIVE (NEGATIVE)
[2019-01-07] MEDS ORDERED: ISOVUE-300 61% 50ML VIAL (Q9967) As Ordered ONE (13:02)
[2019-01-07] MEDS ORDERED: fentaNYL 100 MCG/2 ML INJECTION (J3010) As Ordered ONE (13:02)
[2019-01-07] MEDS ORDERED: MIDAZOLAM INJ 2 MG/2 ML VIAL (J2250) As Ordered ONE (13:02)
[2019-01-07] MEDS ORDERED: BUPIVACAINE HCL 0.5% 10 ML VIAL As Ordered ONE (13:03)
[2019-01-07] MEDS ORDERED: LIDOCAINE 2% MDV 20 ML VIAL As Ordered ONE (13:03)
[2019-01-07] MEDS: ALTEPLASE RECOMBINANT 25 MG in NS 225 ML IV SCH (15:00)
[2019-01-07] MEDS ORDERED: SODIUM CHLORIDE 0.9% INJ 10 ML SYR IV PRN (16:15)
[2019-01-07] MEDS: SODIUM CHLORIDE 0.9% INJ 10 ML SYR IV SCH (16:17)
--- NOTE | 2019-01-07 17:08 | IPNPDOC ---
Subjective Date Seen The patient was seen on 01/07/19. Subjective Chief Complaint/HPI I saw Ms. Hunt after she returned from her procedure with vascular surgery. She reports that she feels relatively well, but she still has the lump in her groin that brought her into the ER in the first place. Nursing reports that her period has continued, but they don't think it has been excessively heavy. General: Reports: Normal Appetite Pulmonary: Denies: Cough Cardiovascular: Denies: Chest Pain, Palpitations Genitourinary: Reports: Other Symptoms (general feeling of pressure and a lump over her pubic bone); Denies: Dysuria Hematologic: Denies: Enlarged Lymph Nodes Psych: Reports: Mood Normal Objective Physical Examination General Exam: Positive: Alert, Cooperative (sitting up in her bed eating her supper when I entered the room), No Acute Distress Eye Exam: Positive: Conjunctiva & lids normal; Negative: Sclera icteric, Ptosis ENT Exam: Positive: Atraumatic, Mucous membr. moist/pink, Pharynx Normal, Tongue Midline, Nares Patent, Other ENT (she has signs of HSV on her upper lip and near her nares); Negative: Pharyngeal Edema Neck Exam: Positive: Supple, +2 carotid pulse wo bruit; Negative: Lymphadenopathy Chest Exam: Positive: Clear to auscultation, Normal air movement; Negative: Wheezing Heart Exam: Positive: Rate Normal, Regular Rhythm, Normal S1, Normal S2; Negative: Gallops, Murmurs, Rubs Abdomen Exam: Positive: Normal bowel sounds, Soft, Other; Negative: Tenderness, Hepatospenomegaly, Mass, Hernia Female Exam: Positive: Discharge (menstrual bleeding); Negative: Nl Ext Genitalia ((exam chaperoned by ) she has subcutaneous palpable varicosities on the mons pubis. There are several areas of scattered folliculitis in the same region. No evidence of cellulitis. She does NOT have labial swelling or varicosities.) Extremity Exam: Positive: Normal pulses; Negative: Clubbing, Cyanosis, Edema, Tenderness, Swelling Skin Exam: Positive: Nl turgor and temperature; Negative: Rash, Breakdown, Lesion Neuro Exam: Positive: Normal Speech Psych Exam: Positive: Mental status NL, Mood NL, Memory Intact, Oriented x 3 Assessment /Plan Problems (1) DVT, bilateral lower limbs Status: Acute Discussed With: Patient Problem Specific Plan: Monitor Clinically Problem Text: She has new DVTs. It is not clear how much of the narrowing of her vasculature is chronic left from her previous DVTs. Dr. Winn is working on thrombolyzing her and a lower extremity catheter remains in place. I will defer management of this to the vascular team. (2) Antithrombin III deficiency Status: Chronic Problem Text: This is a known risk factor for this patient. 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 I believe that she has had a significant amount of clot embolize up and be caught by the filter. Luckily she does not now have a PE. (4) Pelvic pain Status: Acute Response to Treatment: Improving Discussed With: Patient Problem Specific Plan: Monitor Clinically Problem Text: My suspicion is that the pain that initially brought her into the ER was pelvic congestion from the venous pressure backing up behind the IVC filter that became loaded with clot. I am able to palpate some deep pelvic varicosities that certainly seem acute to sub-acute based on the ongoing tenderness. The best treatment for this is decreasing the clot burden at the IVC in my opinion. (5) Heavy menstrual bleeding Status: Acute Response to Treatment: Stable Discussed With: Nurse, Patient Problem Specific Plan: Monitor Clinically, Repeat Labs Problem Text: She reports that her periods are generally heavier early on and she is not concerned about this. She is not anemic. We will monitor her blood c ounts closely as we don't often anticoagulate or use TPA on actively menstruating women. (6) Asthma Status: Chronic Problem Text: Her lungs sounded pretty clear to me on my exam. I realize that she had wheezing earlier, but I am not noting it on my exam today. Continue current regimen, monitor. (7) Tobacco abuse Status: Chronic Problem Text: She needs to stop using nicotine to help preserve her vascular function. Will continue to field counsel her on this. Plan/VTE VTE Prophylaxis Ordered?: Yes (Heparin drip) Plan Activity: Bedrest Therapy: PT Diagnostics: Repeat Labs in AM Anticipated Discharge: Home VS, I&O, 24H, Fishbone Vital Signs/I&O Vital Signs Date Time Temp Pulse Resp B/P (MAP) Pulse Ox O2 Delivery O2 Flow Rate FiO2 01/07/19 16:07 20 01/07/19 16:00 98.4 90 129/70 (89) 100 01/06/19 13:13 Room Air I&O- Last 24 Hours up to 6 AM 01/07/19 06:00 Intake Total 2612.6 ml Output Total 700 ml Balance 1912.6 ml Laboratory Data 24H LABS Laboratory Tests 2 01/06/19 21:11: Activated Partial Thromboplast Time 129.8*H, Human Chorionic Gonadotropin, Qual NEGATIVE, Syphilis Serology NONREACTIVE, HIV Antigen/Antibody Combo Qual NEGATIVE 01/07/19 04:02: Activated Partial Thromboplast Time 40.9H, Nucleated Red Blood Cells % (auto) 0.0, Anion Gap 7L, Glomerular Filtration Rate > 60.0, Blood Urea Nitrogen 6L, Creatinine 0.58, Sodium Level 138, Potassium Level 3.6#, Chloride Level 107, Carbon Dioxide Level 24, Calcium Level 7.9L 01/07/19 10:50: Activated Partial Thromboplast Time 83.9H CBC/BMP Laboratory Tests 01/07/19 04:02 Red Blood Count 4.08, Mean Corpuscular Volume 90.7, Mean Corpuscular Hemoglobin 29.9, Mean Corpuscular Hemoglobin Concent 33.0, Red Cell Distribution Width 13.2, Calcium Level 7.9 L Garrett Callejas MD Jan 07, 2019 17:07
[2019-01-07] MEDS: valACYclovir HCL 500 MG TAB PO SCH (20:33)
[2019-01-07] MEDS ORDERED: NORCO, ANEXSIA 5/325MG TABLET (HYDROcodone/ACETAMINOPHEN) PO PRN (22:15)
[2019-01-07 22:29] LABS: PARTIAL THROMBOPLASTIN TIME 97.9 SECONDS (25.4-37.6)
[2019-01-08] VITALS (17 sets, daily range): BP systolic 90–137; BP diastolic 50–77
[2019-01-08] MEDS: HEPARIN DRIP 25,000 UNITS in APPROPRIATE DILUENT 1 EA IV SCH ×2 (00:24→15:53)
[2019-01-08] MEDS: IPRATROPIUM 0.5MG/ALBUTEROL 2.5MG INH SOL UD 3ML (DUONEB)(J7620) NEB SCH ×4 (01:20→20:00)
[2019-01-08] MEDS: MORPHINE 4 MG/ML 1ML VIAL/SYRINGE (J2270) IV PRN ×5 (03:04→20:11)
[2019-01-08] MEDS: NORCO, ANEXSIA 5/325MG TABLET (HYDROcodone/ACETAMINOPHEN) PO PRN ×2 (04:04→07:49)
[2019-01-08 04:17] LABS: PARTIAL THROMBOPLASTIN TIME 63.7 SECONDS (25.4-37.6)
[2019-01-08 05:46] LABS: HEMATOCRIT 36.1 % (36.0-47.0); HEMOGLOBIN 11.7 g/dl (12.0-15.5); MEAN CORPUSCULAR HEMOGLOBIN 30.5 pg (27.0-33.0); MEAN CORPUSCULAR HGB CONC 32.4 g/dl (32.0-36.5); MEAN CORPUSCULAR VOLUME 94.3 fl (80.0-96.0); PLATELET COUNT, AUTOMATED 142 10^3/uL (150-450); RED BLOOD COUNT 3.83 10^6/uL (4.00-5.40); WHITE BLOOD COUNT 9.6 10^3/uL (4.0-10.0)
[2019-01-08] MEDS: SODIUM CHLORIDE 0.9% INJ 10 ML SYR IV SCH ×2 (06:07→17:44)
[2019-01-08 06:21] LABS: BLOOD UREA NITROGEN 10 MG/DL (7-18); CALCIUM LEVEL 8.3 MG/DL (8.5-10.1); CARBON DIOXIDE LEVEL 26 MEQ/L (21-32); CHLORIDE LEVEL 105 MEQ/L (98-107); CREATININE FOR GFR 0.62 MG/DL (0.55-1.30); GLOMERULAR FILTRATION RATE > 60.0 (>60); GLUCOSE, FASTING 100 MG/DL (70-100); POTASSIUM SERUM 3.9 MEQ/L (3.5-5.1); SODIUM LEVEL 136 MEQ/L (136-145)
[2019-01-08] MEDS: valACYclovir HCL 500 MG TAB PO SCH ×2 (07:49→20:03)
[2019-01-08] MEDS: GABAPENTIN 400 MG CAP PO SCH (07:49)
[2019-01-08] MEDS ORDERED: MORPHINE 4 MG/ML 1ML VIAL/SYRINGE (J2270) IV PRN (08:45)
[2019-01-08 10:09] LABS: HEMATOCRIT 35.1 % (36.0-47.0); HEMOGLOBIN 11.6 g/dl (12.0-15.5)
[2019-01-08] MEDS: PERCOCET 5MG/325MG TAB PO PRN ×3 (11:53→20:03)
[2019-01-08] MEDS: GABAPENTIN 300 MG CAP PO SCH ×2 (15:28→20:02)
[2019-01-08] MEDS: ALTEPLASE RECOMBINANT 25 MG in NS 225 ML IV SCH (15:28)
[2019-01-08 15:44] LABS: HEMOGLOBIN 11.6 g/dl (12.0-15.5)
[2019-01-08 15:53] LABS: PARTIAL THROMBOPLASTIN TIME 56.7 SECONDS (25.4-37.6)
[2019-01-08] MEDS: LORazepam 2 MG/ML VIAL (J2060) IV PRN ×2 (18:26→20:02)
--- NOTE | 2019-01-08 18:53 | IPNPDOC ---
Subjective Date Seen The patient was seen on 01/08/19. Subjective Chief Complaint/HPI DVT Events since last encounter She is in the ICU, and feeling emotional, upset and frustrated about being from kids. She complaints of persistent RLE and pelvic pain. She was a bit anemic today, but states that while her period was pretty heavy, but it really seems to be tapering off. She usually menstruates for 4-5 days, but it seems to be resolving today, the 3rd day. Constitutional: Denies: Chills, Fever Cardiovascular: Denies: Chest Pain Gastrointestinal: Reports: Abdominal Pain; Denies: Nausea, Vomiting, Diarrhea, Constipation Genitourinary: Reports: Other Symptoms (heavy vaginal bleeding, now resolving) Musculoskeletal: Reports: Leg Pain Objective Physical Examination General Exam: Positive: Alert, Cooperative (sitting up in her bed eating her supper when I entered the room), No Acute Distress Eye Exam: Positive: Conjunctiva & lids normal; Negative: Sclera icteric, Ptosis ENT Exam: Positive: Atraumatic, Mucous membr. moist/pink, Pharynx Normal, Tongue Midline, Nares Patent, Other ENT (she has signs of HSV on her upper lip and near her nares); Negative: Pharyngeal Edema Neck Exam: Positive: Supple, +2 carotid pulse wo bruit; Negative: Lymphadenopathy Chest Exam: Positive: Clear to auscultation, Normal air movement; Negative: Wheezing Heart Exam: Positive: Rate Normal, Regular Rhythm, Normal S1, Normal S2; Negative: Gallops, Murmurs, Rubs Abdomen Exam: Positive: Normal bowel sounds, Soft, Other; Negative: Tenderness, Hepatospenomegaly, Mass, Hernia Female Exam: Positive: Discharge (menstrual bleeding); Negative: Nl Ext Genitalia ((exam chaperoned by ) she has subcutaneous palpable varicosities on the mons pubis. There are several areas of scattered folliculitis in the same region. No evidence of cellulitis. She does NOT have labial swelling or varicosities.) Extremity Exam: Positive: Normal pulses; Negative: Clubbing, Cyanosis, Edema, Tenderness, Swelling Skin Exam: Positive: Nl turgor and temperature; Negative: Rash, Breakdown, Lesion Neuro Exam: Positive: Normal Speech Psych Exam: Positive: Mental status NL, Mood NL, Memory Intact, Oriented x 3 Assessment /Plan Problems (1) DVT, bilateral lower limbs Status: Acute Discussed With: Patient Problem Specific Plan: Monitor Clinically Problem Text: She has new DVTs. It is not clear how much of the narrowing of her vasculature is chronic left from her previous DVTs. Dr. Winn is working on thrombolyzing her and a lower extremity catheter remains in place. I will defer management of this to the vascular team. (2) Antithrombin III deficiency Status: Chronic Problem Text: This is a known risk factor for this patient. 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 I believe that she has had a significant amount of clot embolize up and be caught by the filter. Luckily she does not now have a PE. (4) Pelvic pain Status: Acute Response to Treatment: Improving Discussed With: Patient Problem Specific Plan: Monitor Clinically Problem Text: 01/08 -- I ordered a smaller 2 mg dose of IV morphine for prn use, increased her gabapentin, and switched her to Percocet from her previous [place], to keep her more comfortable until the clot improves. My suspicion is that the pain that initially brought her into the ER was pelvic congestion from the venous pressure backing up behind the IVC filter that became loaded with clot. I am able to palpate some deep pelvic varicosities that certainly seem acute to sub-acute based on the ongoing tenderness. The best treatment for this is decreasing the clot burden at the IVC in my opinion. (5) Heavy menstrual bleeding Status: Acute Response to Treatment: Stable Discussed With: Nurse, Patient Problem Specific Plan: Monitor Clinically, Repeat Labs Problem Text: 01/08 -- This appears to be resolving faster than her periods usually do. This morning she reported that the last time she went to the bathroom she didn't need to change her pad. She reports that her periods are generally heavier early on and she is not concerned about this. She is not anemic. We will monitor her blood counts closely as we don't often anticoagulate or use TPA on actively menstruating women. (6) Asthma Status: Chronic Problem Text: Her lungs sounded pretty clear to me on my exam. I realize that she had wheezing earlier, but I am not noting it on my exam today. Continue current regimen, monitor. (7) Tobacco abuse Status: Chronic Problem Text: She needs to stop using nicotine to help preserve her vascular function. Will continue to certified credit counselor her on this. Plan/VTE VTE Prophylaxis Ordered?: Yes (Heparin drip) Plan Activity: Bedrest Therapy: PT Diagnostics: Repeat Labs in AM Anticipated Discharge: Home VS, I&O, [facility] Vital Signs/I&O Vital Signs Date Time Temp Pulse Resp B/P (MAP) Pulse Ox O2 Delivery O2 Flow Rate FiO2 01/08/19 18:00 90 20 118/67 (84) 97 01/08/19 16:00 97.8 01/06/19 13:13 Room Air I&O- Last 24 Hours up to 6 AM 01/08/19 06:00 Intake Total 1009 ml Output Total 1420 ml Balance -411 ml Laboratory Data 24H LABS Laboratory Tests 2 01/07/19 21:50: Activated Partial Thromboplast Time 97.9H, Fibrinogen 466H 01/08/19 03:35: Activated Partial Thromboplast Time 63.7H, Fibrinogen 466H 01/08/19 05:30: Nucleated Red Blood Cells % (auto) 0.0, Anion Gap 5L, Glomerular Filtration Rate > 60.0, Blood Urea Nitrogen 10#, Creatinine 0.62, Sodium Level 136, Potassium Level 3.9, Chloride Level 105, Carbon Dioxide Level 26, Calcium Level 8.3L 01/08/19 09:53: Activated Partial Thromboplast Time 62.0H, Fibrinogen 466H 01/08/19 15:32: Activated Partial Thromboplast Time 56.7H, Fibrinogen 466H CBC/BMP Laboratory Tests 01/08/19 05:30 Red Blood Count 3.83 L, Mean Corpuscular Volume 94.3, Mean Corpuscular Hemoglobin 30.5, Mean Corpuscular Hemoglobin Concent 32.4, Red Cell Distribution Width 13.1, Calcium Level 8.3 L 01/08/19 09:53 01/08/19 15:32 ANTHONY DAVENPORT DO Jan 08, 2019 18:53
[2019-01-08 20:54] LABS: HEMATOCRIT 36.2 % (36.0-47.0); HEMOGLOBIN 11.8 g/dl (12.0-15.5)
[2019-01-08 21:04] LABS: PARTIAL THROMBOPLASTIN TIME 98.2 SECONDS (25.4-37.6)
[2019-01-09] VITALS (23 sets, daily range): BP systolic 97–123; BP diastolic 52–77
[2019-01-09] MEDS: PERCOCET 5MG/325MG TAB PO PRN ×6 (00:45→20:23)
[2019-01-09] MEDS: MORPHINE 4 MG/ML 1ML VIAL/SYRINGE (J2270) IV PRN ×6 (01:26→22:22)
[2019-01-09] MEDS: IPRATROPIUM 0.5MG/ALBUTEROL 2.5MG INH SOL UD 3ML (DUONEB)(J7620) NEB SCH ×4 (02:00→20:00)
[2019-01-09 03:23] LABS: HEMOGLOBIN 11.8 g/dl (12.0-15.5)
[2019-01-09 03:37] LABS: PARTIAL THROMBOPLASTIN TIME 64.3 SECONDS (25.4-37.6)
[2019-01-09] MEDS: SODIUM CHLORIDE 0.9% INJ 10 ML SYR IV SCH ×2 (05:21→17:25)
[2019-01-09 05:37] LABS: HEMATOCRIT 35.3 % (36.0-47.0); HEMOGLOBIN 11.5 g/dl (12.0-15.5); MEAN CORPUSCULAR HEMOGLOBIN 30.6 pg (27.0-33.0); MEAN CORPUSCULAR HGB CONC 32.6 g/dl (32.0-36.5); MEAN CORPUSCULAR VOLUME 93.9 fl (80.0-96.0); PLATELET COUNT, AUTOMATED 138 10^3/uL (150-450); RED BLOOD COUNT 3.76 10^6/uL (4.00-5.40); WHITE BLOOD COUNT 8.6 10^3/uL (4.0-10.0)
[2019-01-09 05:55] LABS: BLOOD UREA NITROGEN 6 MG/DL (7-18); CARBON DIOXIDE LEVEL 27 MEQ/L (21-32); CHLORIDE LEVEL 102 MEQ/L (98-107); CREATININE FOR GFR 0.58 MG/DL (0.55-1.30); GLOMERULAR FILTRATION RATE > 60.0 (>60); GLUCOSE, FASTING 106 MG/DL (70-100); POTASSIUM SERUM 3.9 MEQ/L (3.5-5.1); SODIUM LEVEL 138 MEQ/L (136-145)
[2019-01-09] MEDS: valACYclovir HCL 500 MG TAB PO SCH ×2 (08:22→20:23)
[2019-01-09] MEDS: GABAPENTIN 300 MG CAP PO SCH ×3 (08:23→20:23)
[2019-01-09] MEDS: ONDANSETRON 4MG/2ML VIAL (J2405) IV PRN (09:09)
[2019-01-09 09:38] LABS: HEMATOCRIT 35.3 % (36.0-47.0); HEMOGLOBIN 11.7 g/dl (12.0-15.5)
[2019-01-09 09:49] LABS: PARTIAL THROMBOPLASTIN TIME 41.1 SECONDS (25.4-37.6)
[2019-01-09] MEDS: SIMETHICONE 80 MG CHEW TAB PO PRN (13:10)
[2019-01-09] MEDS: LORazepam 2 MG/ML VIAL (J2060) IV PRN ×2 (15:40→21:30)
[2019-01-09] MEDS: ALTEPLASE RECOMBINANT 25 MG in NS 225 ML IV SCH (15:40)
[2019-01-09] MEDS: CYCLOBENZAPRINE 10 MG TAB PO PRN (15:41)
[2019-01-09 15:58] LABS: HEMATOCRIT 35.8 % (36.0-47.0)
[2019-01-09 16:20] LABS: PARTIAL THROMBOPLASTIN TIME 58.1 SECONDS (25.4-37.6)
--- NOTE | 2019-01-09 19:44 | IPNPDOC ---
Subjective Date Seen The patient was seen on 01/09/19. Subjective Chief Complaint/HPI Patient complained of some pruritus and nausea on her Percocet and morphine today, though she did eat breakfast. Her R leg is still quite swollen and uncomfortable, but she reports that she misses her children terribly, and isn't sure how long she can stay in the hospital. She is upset and tearful. Nursing staff states that they can make an exception for her young children to visit the ICU. Hgb stabilized and menstrual period complete. Constitutional: Denies: Chills, Fever Pulmonary: Denies: Dyspnea, Cough Cardiovascular: Denies: Chest Pain Gastrointestinal: Reports: Nausea, Abdominal Pain Musculoskeletal: Reports: Leg Pain Psych: Reports: Anxiety Objective Physical Examination General Exam: Positive: Alert, Cooperative, Mild Distress (more emotional than physical) Eye Exam: Positive: Conjunctiva & lids normal; Negative: Sclera icteric, Ptosis ENT Exam: Positive: Atraumatic, Mucous membr. 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 There are several areas of scattered folliculitis in the same region. No evidence of cellulitis. She does NOT have labial swelling or varicosities.), Discharge (menstrual bleeding resolved) Extremity Exam: Positive: Normal pulses; Negative: Clubbing, Cyanosis, Edema, Tenderness, Swelling Skin Exam: Positive: Nl turgor and temperature; Negative: Rash, Breakdown, Lesion Neuro Exam: Positive: Normal Speech Psych Exam: Positive: Mental status NL, Mood NL, Memory Intact, Oriented x 3 Assessment /Plan Problems (1) DVT, bilateral lower limbs Status: Acute Discussed With: Patient Problem Specific Plan: Monitor Clinically Problem Text: 01/09 -- encouraged her to discuss her plan of care with Dr. Winn. It seems as though much of her distress over her prolonged hospitalization is from leaving her children for so long. Nursing staff stats OK for her to bend hospital rules and have a visit from her children in the ICU. She has new DVTs. It is not clear how much of the narrowing of her vasculature i s chronic left from her previous DVTs. Dr. Winn is working on thrombolyzing her and a lower extremity catheter remains in place. I will defer management of this to the vascular team. (2) Antithrombin III deficiency Status: Chronic Problem Text: This is a known risk factor for this patient. 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 I believe that she has had a significant amount of clot embolize up and be caught by the filter. Luckily she does not now have a PE. (4) Pelvic pain Status: Acute Response to Treatment: Improving Discussed With: Patient Problem Specific Plan: Monitor Clinically Problem Text: 01/08 -- I ordered a smaller 2 mg dose of IV morphine for prn use, increased her gabapentin, and switched her to Percocet from her previous [place], to keep her more comfortable until the clot improves. My suspicion is that the pain that initially brought her into the ER was pelvic congestion from the venous pressure backing up behind the IVC filter that became loaded with clot. I am able to palpate some deep pelvic varicosities that certainly seem acute to sub-acute based on the ongoing tenderness. The best treatment for this is decreasing the clot burden at the IVC in my opinion. (5) Heavy menstrual bleeding Status: Acute Response to Treatment: Stable Discussed With: Nurse, Patient Problem Specific Plan: Monitor Clinically, Repeat Labs Problem Text: 01/09 -- states done menstruating, Hgb stable 01/08 -- This appears to be resolving faster than her periods usually do. This morning she reported that the last time she went to the bathroom she didn't need to change her pad. She reports that her periods are generally heavier early on and she is not concerned about this. She is not anemic. We will monitor her blood counts closely as we don't often anticoagulate or use TPA on actively menstruating women. (6) Asthma Status: Chronic Problem Text: Her lungs sounded pretty clear to me on my exam. I realize that she had wheezing earlier, but I am not noting it on my exam today. Continue current regimen, monitor. (7) Tobacco abuse Status: Chronic Problem Text: She needs to stop using nicotine to help preserve her vascular function. Will continue to dependency counselor her on this. Plan/VTE VTE Prophylaxis Ordered?: Yes (Heparin drip) Plan Activity: Bedrest Therapy: PT Diagnostics: Repeat Labs in AM Anticipated Discharge: Home VS, I&O, 24H, Fishbone Vital Signs/I&O Vital Signs Date Time Temp Pulse Resp B/P (MAP) Pulse Ox O2 Delivery O2 Flow Rate FiO2 01/09/19 17:35 20 97 01/09/19 17:00 88 105/59 (74) 01/09/19 16:00 99.0 01/06/19 13:13 Room Air I&O- Last 24 Hours up to 6 AM 01/09/19 06:00 Intake Total 2127 ml Output Total 1950 ml Balance 177 ml Laboratory Data 24H LABS Laboratory Tests 2 01/08/19 20:44: Activated Partial Thromboplast Time 98.2H, Fibrinogen 466H 01/09/19 03:12: Activated Partial Thromboplast Time 64.3H, Fibrinogen 474H 01/09/19 05:19: Nucleated Red Blood Cells % (auto) 0.0, Anion Gap 9, Glomerular Filtration Rate > 60.0, Blood Urea Nitrogen 6L, Creatinine 0.58, Sodium Level 138, Potassium Level 3.9, Chloride Level 102, Carbon Dioxide Level 27, Calcium Level 8.0L 01/09/19 09:19: Activated Partial Thromboplast Time 41.1H, Fibrinogen 391 01/09/19 15:43: Activated Partial Thromboplast Time 58.1H, Fibrinogen 474H CBC/BMP Laboratory Tests 01/08/19 20:44 01/09/19 03:12 01/09/19 05:19 Red Blood Count 3.76 L, Mean Corpuscular Volume 93.9, Mean Corpuscular Hemoglobin 30.6, Mean Corpuscular Hemoglobin Concent 32.6, Red Cell Distribution Width 13.0, Calcium Level 8.0 L 01/09/19 09:19 01/09/19 15:43 ANTHONY DAVENPORT DO Jan 09, 2019 19:44
[2019-01-09] MEDS: diphenhydrAMINE 25 MG CAP PO PRN (21:30)
[2019-01-09 21:31] LABS: HEMATOCRIT 35.2 % (36.0-47.0); HEMOGLOBIN 11.5 g/dl (12.0-15.5)
[2019-01-09 21:44] LABS: PARTIAL THROMBOPLASTIN TIME 63.3 SECONDS (25.4-37.6)
[2019-01-10] VITALS (18 sets, daily range): BP systolic 98–139; BP diastolic 52–88
[2019-01-10] MEDS: PERCOCET 5MG/325MG TAB PO PRN ×5 (00:28→20:25)
[2019-01-10] MEDS: IPRATROPIUM 0.5MG/ALBUTEROL 2.5MG INH SOL UD 3ML (DUONEB)(J7620) NEB SCH ×4 (02:00→20:00)
[2019-01-10] MEDS: MORPHINE 4 MG/ML 1ML VIAL/SYRINGE (J2270) IV PRN ×3 (03:11→22:16)
[2019-01-10] MEDS: ONDANSETRON 4MG/2ML VIAL (J2405) IV PRN ×2 (03:19→20:26)
[2019-01-10 03:28] LABS: HEMATOCRIT 36.3 % (36.0-47.0); HEMOGLOBIN 11.8 g/dl (12.0-15.5); MEAN CORPUSCULAR HEMOGLOBIN 30.3 pg (27.0-33.0); MEAN CORPUSCULAR HGB CONC 32.5 g/dl (32.0-36.5); MEAN CORPUSCULAR VOLUME 93.1 fl (80.0-96.0); PLATELET COUNT, AUTOMATED 119 10^3/uL (150-450)
[2019-01-10 03:37] LABS: PARTIAL THROMBOPLASTIN TIME 63.2 SECONDS (25.4-37.6)
[2019-01-10 03:48] LABS: BLOOD UREA NITROGEN 4 MG/DL (7-18); CALCIUM LEVEL 8.4 MG/DL (8.5-10.1); CARBON DIOXIDE LEVEL 28 MEQ/L (21-32); CHLORIDE LEVEL 102 MEQ/L (98-107); CREATININE FOR GFR 0.64 MG/DL (0.55-1.30); GLOMERULAR FILTRATION RATE > 60.0 (>60); GLUCOSE, FASTING 100 MG/DL (70-100); SODIUM LEVEL 137 MEQ/L (136-145)
[2019-01-10] MEDS: ALTEPLASE RECOMBINANT 25 MG in NS 225 ML IV SCH (04:17)
[2019-01-10] MEDS: HEPARIN DRIP 25,000 UNITS in APPROPRIATE DILUENT 1 EA IV SCH (04:19)
[2019-01-10] MEDS: SODIUM CHLORIDE 0.9% INJ 10 ML SYR IV SCH ×2 (06:02→17:26)
[2019-01-10] MEDS: valACYclovir HCL 500 MG TAB PO SCH (08:15)
[2019-01-10] MEDS: GABAPENTIN 300 MG CAP PO SCH ×3 (08:15→20:30)
[2019-01-10 09:42] LABS: HEMATOCRIT 34.3 % (36.0-47.0); HEMOGLOBIN 11.4 g/dl (12.0-15.5)
[2019-01-10 09:54] LABS: PARTIAL THROMBOPLASTIN TIME 43.7 SECONDS (25.4-37.6)
--- NOTE | 2019-01-10 10:41 | IPNPDOC ---
Subjective Date Seen The patient was seen on 01/10/19. Subjective Chief Complaint/HPI Pt this morning is adament that Dr Winn come see her and remove the sheath so that she can go home. She is tearful, she is upset that she is not with her children who are being cared from by her bf. She states that this is nothing she hasn't dealt with in the past and will deal with it again at home on her own. General: Reports: Fatigue Constitutional: Denies: Fever ENT: Denies: Head Aches Pulmonary: Denies: Dyspnea, Cough Cardiovascular: Denies: Chest Pain, Palpitations Gastrointestinal: Denies: Nausea, Vomiting, Abdominal Pain Musculoskeletal: Reports: Leg Pain Psych: Reports: Depression, Anger; Denies: Mood Normal Objective Physical Examination General Exam: Positive: Alert, Cooperative, Mild Distress (more emotional than physical) Eye Exam: Negative: Sclera icteric, Ptosis ENT Exam: Positive: Mucous membr. moist/pink, Pharynx Normal, Nares Patent Neck Exam: Positive: Supple; Negative: Lymphadenopathy Chest Exam: Positive: Clear to auscultation, Normal air movement; Negative: Wheezing Heart Exam: Positive: Rate Normal, Regular Rhythm, Normal S1, Normal S2; Negative: Gallops, Murmurs, Rubs Abdomen Exam: Positive: Normal bowel sounds, Soft; Negative: Tenderness, Hepatospenomegaly, Mass, Hernia Extremity Exam: Positive: Edema (trace - 1 mm edema RLE) Skin Exam: Positive: Nl turgor and temperature; Negative: Rash, Breakdown, Lesion Neuro Exam: Positive: Normal Speech Psych Exam: Positive: Mental status NL, Memory Intact, Oriented x 3; Negative: Mood NL (tearful, agitated) Assessment /Plan Problems (1) DVT, bilateral lower limbs Status: Acute Discussed With: Patient Problem Specific Plan: Monitor Clinically Problem Text: 01/10 Pt is adament that she is leaving today. I think I was able to convince her to wait to speak with Dr Winn and Dr Dash. She is able to state the potential consequences assoc with her leaving AMA and seems to understand the risks. She feels as though an adverse outcome is unlikely for her as it hasn't happened in the past 01/09 -- encouraged her to discuss her plan of care with Dr. Winn. It seems as though much of her distress over her prolonged hospitalization is from leaving her children for so long. Nursing staff stats OK for her to bend hospital rules and have a visit from her children in the ICU. She has new DVTs. It is not clear how much of the narrowing of her vasculature is chronic left from her previous DVTs. Dr. Winn is working on thrombolyzing her and a lower extremity catheter remains in place. I will defer management of this to the vascular team. 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 I believe that she has had a significant amount of clot embolize up and be caught by the filter. Luckily she does not now have a PE. (4) Pelvic pain Status: Acute Response to Treatment: Improving Discussed With: Patient Problem Specific Plan: Monitor Clinically Problem Text: 01/08 -- I ordered a smaller 2 mg dose of IV morphine for prn use, increased her gabapentin, and switched her to Percocet from her previous [place], to keep her more comfortable until the clot improves. My suspicion is that the pain that initially brought her into the ER was pelvic congestion from the venous pressure backing up behind the IVC filter that became loaded with clot. I am able to palpate some deep pelvic varicosities that certainly seem acute to sub-acute based on the ongoing tenderness. The best treatment for this is decreasing the clot burden at the IVC in my opinion. (5) Heavy menstrual bleeding Status: Resolved Response to Treatment: Stable Discussed With: Nurse, Patient Problem Specific Plan: Monitor Clinically, Repeat Labs Problem Text: 01/09 -- states done menstruating, Hgb stable 01/08 -- This appears to be resolving faster than her periods usually do. This morning she reported that the last time she went to the bathroom she didn't need to change her pad. She reports that her periods are generally heavier early on and she is not concerned about this. She is not anemic. We will monitor her blood counts closely as we don't often anticoagulate or use TPA on actively menstruating women. (6) Asthma Status: Chronic Problem Text: Her lungs sounded pretty clear to me on my exam. I realize that she had wheezing earlier, but I am not noting it on my exam today. Continue current regimen, monitor. (7) Tobacco abuse Status: Chronic Problem Text: She needs to stop using nicotine to help preserve her vascular function. Will continue to mitochondrial disorders counselor her on this. Plan/VTE VTE Prophylaxis Ordered?: Yes (Heparin drip) Plan Activity: Bedrest Therapy: PT Diagnostics: Repeat Labs in AM Anticipated Discharge: Home VS, I&O, 24H, Fishbone Vital Signs/I&O Vital Signs Date Time Temp Pulse Resp B/P (MAP) Pulse Ox O2 Delivery O2 Flow Rate FiO2 01/10/19 10:33 16 01/10/19 09:00 90 112/63 (79) 01/10/19 07:00 97.9 98 01/06/19 13:13 Room Air I&O- Last 24 Hours up to 6 AM 01/10/19 06:00 Intake Total 3149.3 ml Output Total 2200 ml Balance 949.3 ml Laboratory Data 24H LABS Laboratory Tests 2 01/09/19 15:43: Activated Partial Thromboplast Time 58.1H, Fibrinogen 474H 01/09/19 21:24: Activated Partial Thromboplast Time 63.3H, Fibrinogen 340 01/10/19 03:14: Activated Partial Thromboplast Time 63.2H, Fibrinogen 227, Anion Gap 7L, Glomerular Filtration Rate > 60.0, Blood Urea Nitrogen 4L, Creatinine 0.64, Sodium Level 137, Potassium Level 4.0, Chloride Level 102, Carbon Dioxide Level 28, Calcium Level 8.4L 01/10/19 03:15: Nucleated Red Blood Cells % (auto) 0.0 01/10/19 09:25: Activated Partial Thromboplast Time 43.7H, Fibrinogen 228 CBC/BMP Laboratory Tests 01/09/19 15:43 01/09/19 21:24 01/10/19 03:14 Calcium Level 8.4 L 01/10/19 03:15 Red Blood Count 3.90 L, Mean Corpuscular Volume 93.1, Mean Corpuscular Hemoglobin 30.3, Mean Corpuscular Hemoglobin Concent 32.5, Red Cell Distribution Width 13.0 01/10/19 09:25 LYSSA VELÁZQUEZ PA-C Jan 10, 2019 10:41 Henry Dash M.D. Jan 10, 2019 18:17
[2019-01-10] MEDS ORDERED: LIDOCAINE 2% MDV 20 ML VIAL As Ordered ONE (12:18)
[2019-01-10] MEDS ORDERED: BUPIVACAINE HCL 0.5% 10 ML VIAL As Ordered ONE (12:18)
[2019-01-10] MEDS ORDERED: MIDAZOLAM INJ 2 MG/2 ML VIAL (J2250) As Ordered ONE (12:18)
[2019-01-10] MEDS ORDERED: fentaNYL 100 MCG/2 ML INJECTION (J3010) As Ordered ONE (12:18)
[2019-01-10] MEDS ORDERED: ISOVUE-300 61% 50ML VIAL (Q9967) As Ordered ONE (12:19)
--- NOTE | 2019-01-10 14:58 | IPNPDOC ---
Date Seen The patient was seen on 01/10/19. Progress Note Vascular Surgery Dr Winn REASON FOR CONSULTATION: BLE DVT PCP: BONNIE HPI: 33year oldF with a past medical history significant for AT III def with h/o recurrent thrombo embolic disease, recurrent DVT, s/p IVC filter and h/o PE. States she was diagnosed with ATIII deficiency in 2015. She has had recurrent blood clots in her legs as well as her lungs. She has sustained a stroke without residual deficits. She is currently on Eliquis and has an IVC filter in place which was placed in 2012. She was on Lovenox during her pregnancies in 2010 and 2014. States she has previously failed Coumadin, per pt she was previously on Coumadin in the past but was taking very large doses (20 mg po BID per pt) without therpeutic INR. The pt was found to have BLE DVT, vascular surgery consulted. The pt is adamant for D/C today. Denies any fevers, chills, weakness, fatigue, Headache, Chest Pain, Shortness of breath, cough, palpitations, abdominal pain, N/V/D or changes in bowel or bladder habits. Medical History Anti-thrombin III deficiency. On Eliquis AC Recurrent thromboembolic disease Asthma Recurrent DVT s/p IVC filter Tobacco dependence Pulmonary embolism H/O CVA, no residual effect. Surgical History CS - 2006, 2008, 2010, 2014 Stillborn vaginal delivery - 2007 Miscarriage - 2012 Termination of - 2013 Cholecystectomy IVC filter placement Tubal ligation Tonsillectomy and adenoidectomy PE: GEN: 33yoF, appears stated age. No acute distress. Alert and oriented x 3. HEENT: Normocephalic, atraumatic. Sclera are nonicteric. Conjunctiva without injection. Moist mucous membranes. CHEST: Regular rate and rhythm, +S1, +S2 LUNGS: Clear to auscultation bilaterally. No wheezes, rales, or rhonchi. ABD: Round, soft, non-tender, non-distended. +Bowel sounds throughout. No rebound or guarding. No costovertebral angle tenderness. EXT: Pulses 2+ bilaterally dorsalis pedis and radial. Appears to have generalized swelling and erythema RLE. No warmth, mild TTP. SKIN: [place], dry, warm. Capillary refill <2sec. No rashes. NEURO: Alert and oriented x 3. Cranial nerves III-XII are intact. No focal deficits appreciated. Imaging. 1. Non-OB complete pelvic ultrasound - No intrapelvic abnormality on this limited exam without visualization of either ovary. 2. CT abdomen and pelvis without contrast - Inferior vena cava filter present. There are prominent right iliac veins which are fairly large in caliber. There are tiny left iliac veins. Multiple venous collateral vessels are seen in the anterior superficial abdominal wall and pelvic wall. Streaky edema/inflammation of the deep pelvic fat more so on the right than on the left may indicate pelvic inflammatory disease or venous congestion in the pelvis. No evidence of mass or free fluid. 3. Bilateral lower extremity duplex - Deep vein thrombosis bilaterally in the common femoral vein and greater saphenous vein. 4. CT chest angiogram - There is no evidence of a pulmonary embolus. Suspected subsegmental atelectatic changes in the lung bases, however, these are essentially unchanged compared to the prior CT of 01/29/2016 and may at least in part represent chronic fibrotic changes. A&P: 1. Bilateral lower extremity DVT 2/2 anti-thrombin III deficiency IVC filter in place Continue Heparin drip per protocol Alteplase gtt per protocol. Fibrinogen 228 this AM. Hgb 11.4 this AM. Pt is discussed and reviewed with Dr Winn. Plan for Angiogram today as per Dr Winn. 2. anti-thrombin III deficiency. Heparin gtt, Eliquis on hold. States has previously been on Coumadin in past but despite high doses was not therapeutic. Follows as outpt with [facility] Hematology, previously saw Dr Steward. Since pt has failed both Coumadin and NOAC, she will likely require lifelong Lovenox. 3. H/O recurrent DVT/PE, S/P IVC filter 2012. Thank you for your consultation. We will continue to follow along with you. VS, I&O, 24H, Fishbone Vital Signs/I&O Vital Signs Date Time Temp Pulse Resp B/P (MAP) Pulse Ox O2 Delivery O2 Flow Rate FiO2 01/10/19 11:03 16 01/10/19 11:00 77 105/58 (74) 01/10/19 07:00 97.9 98 01/06/19 13:13 Room Air I&O- Last 24 Hours up to 6 AM 01/10/19 06:00 Intake Total 3149.3 ml Output Total 2200 ml Balance 949.3 ml Laboratory Data 24H LABS Laboratory Tests 2 01/09/19 15:43: Activated Partial Thromboplast Time 58.1H, Fibrinogen 474H 01/09/19 21:24: Activated Partial Thromboplast Time 63.3H, Fibrinogen 340 01/10/19 03:14: Activated Partial Thromboplast Time 63.2H, Fibrinogen 227, Anion Gap 7L, Glomerular Filtration Rate > 60.0, Blood Urea Nitrogen 4L, Creatinine 0.64, Sodium Level 137, Potassium Level 4.0, Chloride Level 102, Carbon Dioxide Level 28, Calcium Level 8.4L 01/10/19 03:15: Nucleated Red Blood Cells % (auto) 0.0 01/10/19 09:25: Activated Partial Thromboplast Time 43.7H, Fibrinogen 228 CBC/BMP Laboratory Tests 01/09/19 15:43 01/09/19 21:24 01/10/19 03:14 Calcium Level 8.4 L 01/10/19 03:15 Red Blood Count 3.90 L, Mean Corpuscular Volume 93.1, Mean Corpuscular Hemoglobin 30.3, Mean Corpuscular Hemoglobin Concent 32.5, Red Cell Distribution Width 13.0 01/10/19 09:25 Grace Tapia Jan 10, 2019 14:58
[2019-01-10 16:20] LABS: HEMATOCRIT 36.7 % (36.0-47.0); HEMOGLOBIN 12.1 g/dl (12.0-15.5)
[2019-01-10 16:32] LABS: PARTIAL THROMBOPLASTIN TIME 72.8 SECONDS (25.4-37.6)
[2019-01-10] MEDS: diphenhydrAMINE 25 MG CAP PO PRN (20:24)
[2019-01-10] MEDS: LORazepam 2 MG/ML VIAL (J2060) IV PRN (20:26)
[2019-01-10 22:29] LABS: HEMATOCRIT 34.7 % (36.0-47.0); HEMOGLOBIN 11.5 g/dl (12.0-15.5)
[2019-01-10 22:42] LABS: PARTIAL THROMBOPLASTIN TIME 68.3 SECONDS (25.4-37.6)
[2019-01-10] MEDS ORDERED: SENOKOT S TAB PO PRN (23:00)
[2019-01-10] MEDS ORDERED: MOM 30ML SUSPENSION UDC PO PRN (23:00)
[2019-01-11] VITALS (13 sets, daily range): BP systolic 88–127; BP diastolic 49–70
[2019-01-11] MEDS: PERCOCET 5MG/325MG TAB PO PRN ×3 (00:05→12:39)
[2019-01-11] MEDS: HEPARIN DRIP 25,000 UNITS in APPROPRIATE DILUENT 1 EA IV SCH (00:14)
[2019-01-11] MEDS: IPRATROPIUM 0.5MG/ALBUTEROL 2.5MG INH SOL UD 3ML (DUONEB)(J7620) NEB SCH ×3 (02:00→13:19)
[2019-01-11] MEDS: ALTEPLASE RECOMBINANT 25 MG in NS 225 ML IV SCH (04:22)
[2019-01-11] MEDS: SODIUM CHLORIDE 0.9% INJ 10 ML SYR IV SCH (04:23)
[2019-01-11] MEDS: MORPHINE 4 MG/ML 1ML VIAL/SYRINGE (J2270) IV PRN ×3 (04:36→13:30)
[2019-01-11] MEDS: diphenhydrAMINE 25 MG CAP PO PRN (04:41)
[2019-01-11 04:50] LABS: HEMATOCRIT 35.9 % (36.0-47.0); HEMOGLOBIN 11.8 g/dl (12.0-15.5); MEAN CORPUSCULAR HEMOGLOBIN 30.4 pg (27.0-33.0); MEAN CORPUSCULAR HGB CONC 32.9 g/dl (32.0-36.5); MEAN CORPUSCULAR VOLUME 92.5 fl (80.0-96.0); PLATELET COUNT, AUTOMATED 107 10^3/uL (150-450); RED BLOOD COUNT 3.88 10^6/uL (4.00-5.40)
[2019-01-11 04:59] LABS: PARTIAL THROMBOPLASTIN TIME 74.9 SECONDS (25.4-37.6)
[2019-01-11 05:08] LABS: BLOOD UREA NITROGEN 5 MG/DL (7-18); CALCIUM LEVEL 8.3 MG/DL (8.5-10.1); CARBON DIOXIDE LEVEL 29 MEQ/L (21-32); CHLORIDE LEVEL 103 MEQ/L (98-107); GLOMERULAR FILTRATION RATE > 60.0 (>60); GLUCOSE, FASTING 94 MG/DL (70-100); SODIUM LEVEL 138 MEQ/L (136-145)
[2019-01-11] MEDS: GABAPENTIN 300 MG CAP PO SCH (07:32)
[2019-01-11] MEDS: ONDANSETRON 4MG/2ML VIAL (J2405) IV PRN (08:29)
--- NOTE | 2019-01-11 09:09 | IPNPDOC ---
Date Seen The patient was seen on 01/11/19. Progress Note Vascular Surgery Dr Winn REASON FOR CONSULTATION: BLE DVT PCP: BONNIE HPI: 33year oldF with a past medical history significant for AT III def with h/o recurrent thrombo embolic disease, recurrent DVT, s/p IVC filter and h/o PE. States she was diagnosed with ATIII deficiency in 2015. She has had recurrent blood clots in her legs as well as her lungs. She has sustained a stroke without residual deficits. She is currently on Eliquis and has an IVC filter in place which was placed in 2012. She was on Lovenox during her pregnancies in 2010 and 2014. States she has previously failed Coumadin, per pt she was previously on Coumadin in the past but was taking very large doses (20 mg po BID per pt) without therpeutic INR. The pt was found to have BLE DVT, vascular surgery consulted. Pt states RLE feels more swollen after procedure yesterday. Denies any fevers, chills, weakness, fatigue, Headache, Chest Pain, Shortness of breath, cough, palpitations, abdominal pain, N/V/D or changes in bowel or bladder habits. Medical History Anti-thrombin III deficiency. On Eliquis AC Recurrent thromboembolic disease Asthma Recurrent DVT s/p IVC filter Tobacco dependence Pulmonary embolism H/O CVA, no residual effect. Surgical History CS - 2006, 2008, 2010, 2014 Stillborn vaginal delivery - 2007 Miscarriage - 2012 Termination of - 2013 Cholecystectomy IVC filter placement Tubal ligation Tonsillectomy and adenoidectomy PE: GEN: 33yoF, appears stated age. No acute distress. Alert and oriented x 3. HEENT: Normocephalic, atraumatic. Sclera are nonicteric. Conjunctiva without injection. Moist mucous membranes. CHEST: Regular rate and rhythm, +S1, +S2 LUNGS: Clear to auscultation bilaterally. No wheezes, rales, or rhonchi. ABD: Round, soft, non-tender, non-distended. +Bowel sounds throughout. No rebound or guarding. EXT: Appears to have generalized swelling and erythema RLE. No warmth, mild TTP. SKIN: [place], dry, warm. No rashes. NEURO: Alert and oriented x 3. Cranial nerves III-XII are intact. No focal deficits appreciated. Imaging. 1. Non-OB complete pelvic ultrasound - No intrapelvic abnormality on this limited exam without visualization of either ovary. 2. CT abdomen and pelvis without contrast - Inferior vena cava filter present. There are prominent right iliac veins which are fairly large in caliber. There are tiny left iliac veins. Multiple venous collateral vessels are seen in the anterior superficial abdominal wall and pelvic wall. Streaky edema/inflammation of the deep pelvic fat more so on the right than on the left may indicate pelvic inflammatory disease or venous congestion in the pelvis. No evidence of mass or free fluid. 3. Bilateral lower extremity duplex - Deep vein thrombosis bilaterally in the common femoral vein and greater saphenous vein. 4. CT chest angiogram - There is no evidence of a pulmonary embolus. Suspected subsegmental atelectatic changes in the lung bases, however, these are essentially unchanged compared to the prior CT of 01/29/2016 and may at least in part represent chronic fibrotic changes. A&P: 1. Bilateral lower extremity DVT 2/2 anti-thrombin III deficiency IVC filter in place Continue Heparin drip per protocol Alteplase gtt per protocol. Fibrinogen 247 this AM. Hgb 11.8 this AM. S/P Angiogram as per Dr Winn 01/10/19 s/p angioplasty, continue with thrombolysis. Pt is discussed and reviewed with Dr Winn. 2. anti-thrombin III deficiency. Heparin gtt, Eliquis on hold. States has previously been on Coumadin in past but despite high doses was not therapeutic. Follows as outpt with [facility] Hematology, previously saw Dr Steward. Since pt has failed both Coumadin and NOAC, she will likely require lifelong Lovenox. 3. H/O recurrent DVT/PE, S/P IVC filter 2012. VS, I&O, 24H, Fishbone Vital Signs/I&O Vital Signs Date Time Temp Pulse Resp B/P (MAP) Pulse Ox O2 Delivery O2 Flow Rate FiO2 01/11/19 08:40 20 98 01/11/19 08:00 96.7 92 127/60 (82) 01/06/19 13:13 Room Air I&O- Last 24 Hours up to 6 AM 01/11/19 06:00 Intake Total 2361 ml Output Total 2075 ml Balance 286 ml Laboratory Data 24H LABS Laboratory Tests 2 01/10/19 09:25: Activated Partial Thromboplast Time 43.7H, Fibrinogen 228 01/10/19 15:52: Activated Partial Thromboplast Time 72.8H, Fibrinogen 252 01/10/19 22:18: Activated Partial Thromboplast Time 68.3H, Fibrinogen 230 01/11/19 04:36: Activated Partial Thromboplast Time 74.9H, Fibrinogen 247, Nucleated Red Blood Cells % (auto) 0.0, Anion Gap 6L, Glomerular Filtration Rate > 60.0, Blood Urea Nitrogen 5L, Creatinine 0.60, Sodium Level 138, Potassium Level 4.0, Chloride Level 103, Carbon Dioxide Level 29, Calcium Level 8.3L CBC/BMP Laboratory Tests 01/10/19 09:25 01/10/19 15:52 01/10/19 22:18 01/11/19 04:36 Red Blood Count 3.88 L, Mean Corpuscular Volume 92.5, Mean Corpuscular Hemoglobin 30.4, Mean Corpuscular Hemoglobin Concent 32.9, Red Cell Distribution Width 13.0, Calcium Level 8.3 L Grace Tapia Jan 11, 2019 09:09
--- NOTE | 2019-01-11 09:28 | IPNPDOC ---
Subjective Date Seen The patient was seen on 01/11/19. Subjective Chief Complaint/HPI Pt this morning cont to c/o pain in the RLE. She denies SOB, cough. She is less adament about d/c today. General: Reports: Fatigue Constitutional: Denies: Chills, Fever Pulmonary: Denies: Dyspnea, Cough Cardiovascular: Denies: Chest Pain, Palpitations Gastrointestinal: Denies: Nausea, Vomiting, Diarrhea Neurological: Denies: Weakness Psych: Reports: Mood Normal Objective Physical Examination General Exam: Positive: Alert, Cooperative, No Acute Distress Eye Exam: Negative: Sclera icteric, Ptosis ENT Exam: Positive: Mucous membr. moist/pink, Nares Patent Neck Exam: Positive: Supple; Negative: Lymphadenopathy Chest Exam: Positive: Clear to auscultation, Normal air movement; Negative: Wheezing Heart Exam: Positive: Rate Normal, Regular Rhythm, Normal S1, Normal S2; Negative: Gallops, Murmurs, Rubs Abdomen Exam: Positive: Normal bowel sounds, Soft; Negative: Tenderness, Mass, Hernia Extremity Exam: Positive: Edema (trace - 1 mm edema RLE) Skin Exam: Positive: Nl turgor and temperature; Negative: Rash, Breakdown, Lesion Neuro Exam: Positive: Normal Speech Psych Exam: Positive: Mental status NL, Memory Intact, Oriented x 3; Negative: Mood NL (tearful, agitated) Assessment /Plan Problems (1) DVT, bilateral lower limbs Status: Acute Discussed With: Patient Problem Specific Plan: Monitor Clinically Problem Text: 01/11 Pt is calm this morning. She is willing to stay at this time. She doesnt' want to have the balloon deployed again as this increases her pain. She will need lifelong Lovenox. 01/10 Pt is adament that she is leaving today. I think I was able to convince her to wait to speak with Dr Winn and Dr Dash. She is able to state the potential consequences assoc with her leaving AMA and seems to understand the risks. She feels as though an adverse outcome is unlikely for her as it hasn't happened in the past 01/09 -- encouraged her to discuss her plan of care with Dr. Winn. It seems as though much of her distress over her prolonged hospitalization is from leaving her children for so long. Nursing staff stats OK for her to bend hospital rules and have a visit from her children in the ICU. She has new DVTs. It is not clear how much of the narrowing of her vasculature is chronic left from her previous DVTs. Dr. Winn is working on thrombolyzing her and a lower extremity catheter remains in place. I will defer management of this to the vascular team. 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 I believe that she has had a significant amount of clot embolize up and be caught by the filter. Luckily she does not now have a PE. (4) Pelvic pain Status: Acute Response to Treatment: Improving Discussed With: Patient Problem Specific Plan: Monitor Clinically Problem Text: 01/08 -- I ordered a smaller 2 mg dose of IV morphine for prn use, increased her gabapentin, and switched her to Percocet from her previous [place], to keep her more comfortable until the clot improves. My suspicion is that the pain that initially brought her into the ER was pelvic congestion from the venous pressure backing up behind the IVC filter that became loaded with clot. I am able to palpate some deep pelvic varicosities that certainly seem acute to sub-acute based on the ongoing tenderness. The best treatment for this is decreasing the clot burden at the IVC in my opinion. (5) Heavy menstrual bleeding Status: Resolved Response to Treatment: Stable Discussed With: Nurse, Patient Problem Specific Plan: Monitor Clinically, Repeat Labs Problem Text: 01/09 -- states done menstruating, Hgb stable 01/08 -- This appears to be resolving faster than her periods usually do. This morning she reported that the last time she went to the bathroom she didn't need to change her pad. She reports that her periods are generally heavier early on and she is not concerned about this. She is not anemic. We will monitor her blood counts closely as we don't often anticoagulate or use TPA on actively menstruating women. (6) Asthma Status: Chronic Problem Text: Her lungs sounded pretty clear to me on my exam. I realize that she had wheezing earlier, but I am not noting it on my exam today. Continue current regimen, monitor. (7) Tobacco abuse Status: Chronic Problem Text: She needs to stop using nicotine to help preserve her vascular function. Will continue to agency legal counsel her on this. Plan/VTE VTE Prophylaxis Ordered?: Yes (Heparin drip) Plan Activity: Bedrest Therapy: PT Diagnostics: Repeat Labs in AM Anticipated Discharge: Home VS, I&O, 24H, [facility] Vital Signs/I&O Vital Signs Date Time Temp Pulse Resp B/P (MAP) Pulse Ox O2 Delivery O2 Flow Rate FiO2 01/11/19 08:40 20 98 01/11/19 08:00 96.7 92 127/60 (82) 01/06/19 13:13 Room Air I&O- Last 24 Hours up to 6 AM 01/11/19 06:00 Intake Total 2361 ml Output Total 2075 ml Balance 286 ml Laboratory Data 24H LABS Laboratory Tests 2 01/10/19 09:25: Activated Partial Thromboplast Time 43.7H, Fibrinogen 228 01/10/19 15:52: Activated Partial Thromboplast Time 72.8H, Fibrinogen 252 01/10/19 22:18: Activated Partial Thromboplast Time 68.3H, Fibrinogen 230 01/11/19 04:36: Activated Partial Thromboplast Time 74.9H, Fibrinogen 247, Nucleated Red Blood Cells % (auto) 0.0, Anion Gap 6L, Glomerular Filtration Rate > 60.0, Blood Urea Nitrogen 5L, Creatinine 0.60, Sodium Level 138, Potassium Level 4.0, Chloride Level 103, Carbon Dioxide Level 29, Calcium Level 8.3L CBC/BMP Laboratory Tests 01/10/19 09:25 01/10/19 15:52 01/10/19 22:18 01/11/19 04:36 Red Blood Count 3.88 L, Mean Corpuscular Volume 92.5, Mean Corpuscular Hemoglobin 30.4, Mean Corpuscular Hemoglobin Concent 32.9, Red Cell Distribution Width 13.0, Calcium Level 8.3 L LYSSA VELÁZQUEZ PA-C Jan 11, 2019 09:28
[2019-01-11 10:57] LABS: HEMATOCRIT 32.5 % (36.0-47.0); HEMOGLOBIN 10.6 g/dl (12.0-15.5)
[2019-01-11 11:07] LABS: PARTIAL THROMBOPLASTIN TIME 61.7 SECONDS (25.4-37.6)
[2019-01-11] MEDS ORDERED: ISOVUE-300 61% 50ML VIAL (Q9967) As Ordered ONE (14:16)
[2019-01-11] MEDS ORDERED: fentaNYL 100 MCG/2 ML INJECTION (J3010) As Ordered ONE (14:16)
[2019-01-11] MEDS ORDERED: MIDAZOLAM INJ 2 MG/2 ML VIAL (J2250) As Ordered ONE (14:16)
[2019-01-11] MEDS ORDERED: BUPIVACAINE HCL 0.5% 10 ML VIAL As Ordered ONE (14:28)
[2019-01-11] MEDS ORDERED: LIDOCAINE 2% MDV 20 ML VIAL As Ordered ONE (14:28)
[2019-01-11] MEDS ORDERED: CALCIUM CARBONATE 500 MG CHEW U/D PO PRN (16:00)
[2019-01-11] MEDS ORDERED: PERCOCET PO (16:44)
--- NOTE | 2019-01-11 18:00 | DSES ---
DATE OF ADMISSION: 01/06/2019 DATE OF DISCHARGE: 01/11/2019 DISCHARGE DIAGNOSES: 1. Recurrent deep vein thrombosis of bilateral common femoral vein and greater saphenous vein. 2. Antithrombin 3 deficiency 3. Heavy nicotine addiction. 4. Obesity. 5. Asthma 6. Moderate persistent history of pulmonary embolism status post inferior vena cava filter. 7. Medication noncompliance. 8. Chronic left lower extremity pain secondary to previous deep vein thrombosis. HOSPITAL COURSE: The patient presented to [facility] Emergency Room (ER) more so related to menorrhagia. Was found to have new extensive deep vein thrombosis (DVT) as above, for which she underwent angiogram with angioplasty with alteplase thrombolysis per Dr. Winn. The patient had significant right lower extremity pain, mainly related to soft tissue swelling status post angioplasty, in which the pain improved with removal of thrombolysis sheath today, on the day of discharge. Throughout admission her hemoglobin stayed stable at between 10-11, and her menorrhagia resolved by day #2 of admission. Of note, her CT abdomen and pelvis showed prominent right iliac vein, small left iliac vein, and multiple venous collateral vessels in the anterior superficial abdominal wall and pelvic wall, streaky inflammation in the deep pelvic fat, more so on the right, consistent more so with venous congestion. CT of the chest showed no evidence of new pulmonary embolism (PE), and pelvic ultrasound showed no intrapelvic abnormality. The patient was discharged to home on Lovenox 1 mg/kg subcutaneous twice a day, which would be 100 mg subcutaneous twice a day. She has given herself Lovenox numerous times in the past and is well aware how to administer this. She will start this tonight. She will hold any further apixaban dosing. Since the patient has been in, she has been off of nicotine other than using an inhaler rarely, and she is adamant she will stay off the nicotine, although her boyfriend does smoke in the house. She was titrated down to Percocet 5/325 every 6 hours. maximal daily dose four, dispense 20 for 5 days. While in the hospital she had been using 10 mg every 4 hours. She will continue her gabapentin 900 three times a day. She will followup with her primary care physician (PCP), Tereza, on January 14 at [address] Winn within a week.
--- NOTE | 2019-02-09 13:35 | REPIR ---
DATE OF PROCEDURE: 01/07/2019 ATTENDING SURGEON: Dr. Delfino Winn WRAPPING MACHINE OPERATOR: Paul Jaimes and Aliza Clarke PREOPERATIVE DIAGNOSIS: Right lower extremity phlegmasia, right lower extremity pain, right lower extremity deep venous thrombosis (DVT). POSTOPERATIVE DIAGNOSIS: Right lower extremity phlegmasia, right lower extremity pain, right lower extremity deep venous thrombosis (DVT). PROCEDURE: Ultrasound-guided right popliteal vein cannulation, right lower extremity venogram, placement of a 40 cm infusion catheter with initiation of thrombolysis. INDICATION: The patient is a 33-year-old female with deep venous thrombosis (DVT) in her right lower extremity with a history of DVT and hypercoagulable state who has severe pain and phlegmasia in the right lower extremity. The patient undergo a right lower extremity venous thrombolysis. Risks, benefits, and alternative options were discussed with the patient. ANESTHESIA: Was local with sedation. ESTIMATED BLOOD LOSS: Minimal. PROCEDURE: The patient was taken to the angiography suite, placed supine on the angiography room table and then prepped and draped in a standard surgical fashion. The right popliteal vein was cannulated using ultrasound guidance. A wire was advanced through the popliteal of the superficial femoral and common femoral vein. A venogram was performed showing diffuse thrombosis along the course of the right lower extremity and an infusion catheter was placed and thrombolysis was initiated. Dressings were then applied. The patient tolerated the procedure well. All instruments, sponges, and needle counts were correct at the end of the case. There were no complications. Dr. Winn was present for and directed the entire case. The patient was transferred to the intensive care unit (ICU) for right lower extremity venous thrombolysis.
--- NOTE | 2019-02-09 14:05 | REPIR ---
DATE OF PROCEDURE: 01/11/2019 ATTENDING SURGEON: Dr. Dell Winn COMMERCIAL ANNOUNCER: Aliza Clarke and Ruth Bar PREOPERATIVE DIAGNOSES: Right lower extremity deep vein thrombosis (DVT), right lower extremity phlegmasia, inferior vena cava thrombosis. POSTOPERATIVE DIAGNOSES: Right lower extremity deep vein thrombosis (DVT), right lower extremity phlegmasia, inferior vena cava thrombosis. PROCEDURE: Right lower extremity venous thrombolysis followup, right lower extremity venogram. INDICATION: The patient 33-year-old female with right lower extremity DVT and phlegmasia who has been undergoing venous thrombolysis. The patient will now undergo a lysis followup. ANESTHESIA: Local with sedation. CONTRAST: 3 mL. HEPARIN: None. COMPLICATIONS: None. DRAINS: None. SPECIMENS: None. IMPLANTS: None. PROCEDURE: The patient was taken to the angiography suite, placed prone and the catheter was removed over a Bentson wire. A venogram was performed showing improved flow through the veins in the leg with continued inferior vena cava thrombosis. Dressings were applied. The patient tolerated the procedure well. All instrument, sponge and needle counts were correct at the end of the case. There were no complications. Dr. Winn was present for and directed the entire case. The patient was transferred to the holding area and subsequently to the intensive care unit (ICU) in stable condition.
--- NOTE | 2019-02-09 14:25 | REPIR ---
DATE OF PROCEDURE: 01/10/2019 ATTENDING SURGEON: Dr. Dell Winn COMMERCIAL LEASE ADMINISTRATOR: Aliza Clarke and Ruth Bar PREOPERATIVE DIAGNOSES: Right lower extremity phlegmasia, thrombosed IVC. POSTOPERATIVE DIAGNOSES: Right lower extremity phlegmasia, thrombosed IVC. PROCEDURE: Venous lysis followup, right lower extremity venogram, infusion catheter exchange. INDICATION: The patient is a 33-year-old female with phlegmasia of the right lower extremity and findings of thrombosed inferior vena cava. The patient will undergo a lysis followup. ANESTHESIA: Local with sedation with 2 mg Versed and 100 micrograms of fentanyl. COMPLICATIONS: None. DRAINS: None. SPECIMENS: None. IMPLANTS: None. PROCEDURE The patient was taken to the angiography suite, placed prone and the catheter was removed over a Bentson wire. A venogram was performed showing residual thrombus remaining within the right lower extremity and iliac vessels. The new 30 cm infusion catheter was placed and thrombolysis reinitiated. Dressings were then applied. The patient tolerated the procedure well. All instrument, sponge and needle counts were correct at the end of the case. There were no complications. Dr. Winn was present for and directed the entire case. The patient was transferred to the holding area and subsequently to the intensive care unit (ICU) in stable condition.
--- NOTE | 2019-02-14 14:00 | REPIR ---
DATE OF PROCEDURE: 01/07/2019 ATTENDING SURGEON: Dr. Delfino Winn ASSISTANTS: Aliza Clarke and Paul Jaimes. PREOPERATIVE DIAGNOSIS: Right lower extremity deep venous thrombosis (DVT), poor venous access. POSTOPERATIVE DIAGNOSIS: Right lower extremity deep venous thrombosis, poor venous access. PROCEDURE: Ultrasound and fluoroscopic guided left basilic vein 42 cm peripherally inserted central catheter (PICC) line placement. INDICATION: The patient is a 33-year-old female undergoing right lower extremity venous thrombolysis who requires access for blood draws and medication. ANESTHESIA: Local with 10 mL of 2% lidocaine mixed with 0.5% Marcaine. FLUOROSCOPY TIME: 0.2 minutes. CONTRAST: None. COMPLICATIONS: None. DRAINS: None. SPECIMENS: None. IMPLANTS: None. DESCRIPTION OF PROCEDURE: The patient was taken to the angiography suite, placed supine on the angiography table, and then prepped and draped in a standard surgical fashion. The left basilic vein was cannulated. Distance measured to the superior vena cava right atrial junction. The PICC line was cut to 42 cm and placed under fluoroscopic guidance with the tip in the superior vena cava right atrial junction. Both ports were aspirated and noted to aspirate easily, and then flushed with heparinized saline. Dressings were applied. The patient tolerated procedure well. All instrument, sponge, and needle counts were correct at the end the case. There were no complications. Dr. Winn was present for and directed the entire case. The patient was transferred to the intensive care unit (ICU) in stable condition.
== END 2019-01-11 17:05 | disposition home or self-care (01) | DRG 197 ==
LOC: M ED 13:12 → M ED INP 17:48 → M ICU 19:53
PROVIDERS: ADMIT Family Medicine; ATTEND Family Medicine
DX: I82.413 Acute embolism and thrombosis of femoral vein, bilateral (principal); D68.59 Other primary thrombophilia; I86.2 Pelvic varices; F17.200 Nicotine dependence, unspecified, uncomplicated; J45.909 Unspecified asthma, uncomplicated; Z91.19 Patient's noncompliance with other medical treatment and regimen; E66.9 Obesity, unspecified; Z86.711 Personal history of pulmonary embolism; F12.90 Cannabis use, unspecified, uncomplicated; Z88.0 Allergy status to penicillin; Z88.1 Allergy status to other antibiotic agents; Z88.8 Allergy status to other drugs, medicaments and biological substances; I82.813 Embolism and thrombosis of superficial veins of lower extremities, bilateral

== ENCOUNTER 2019-01-13 17:54 | Inpatient (IN) | payer OTHER ==
[~2019-01-13] VITALS: Ht 170.2 cm; Wt 103.7 kg
[~2019-01-13 17:54] MED LIST changes: +ACET-897 PO; +VENTAER INH
[2019-01-13] MEDS ORDERED: ENOX100I3 (18:05)
[2019-01-13] MEDS ORDERED: OXYC1TAB23 (18:05)
[2019-01-13] MEDS ORDERED: fentaNYL 100 MCG/2 ML INJECTION (J3010) IV ONE ×2 (19:15→21:00)
[2019-01-13 19:58] LABS: BASO # 0.1 10^3/uL (0.0-0.2); BASO % 0.5 % (0.0-1.0); EOS # 0.2 10^3/uL (0.0-0.50); EOS % 1.1 % (0.0-3.0); HEMATOCRIT 39.8 % (36.0-47.0); HEMOGLOBIN 12.9 g/dl (12.0-15.5); LYMPH # 1.9 10^3/uL (1.5-4.5); LYMPH % 12.1 % (24.0-44.0); MEAN CORPUSCULAR HEMOGLOBIN 30.4 pg (27.0-33.0); MEAN CORPUSCULAR HGB CONC 32.4 g/dl (32.0-36.5); MEAN CORPUSCULAR VOLUME 93.6 fl (80.0-96.0); MONO # 1.4 10^3/uL (0.0-0.8); MONO % 9.1 % (0.0-5.0); NEUTROPHILS # 11.8 10^3/uL (1.8-7.7); NEUTROPHILS % 76.2 % (36.0-66.0); PLATELET COUNT, AUTOMATED 198 10^3/uL (150-450); RED BLOOD COUNT 4.25 10^6/uL (4.00-5.40); WHITE BLOOD COUNT 15.5 10^3/uL (4.0-10.0)
[2019-01-13 20:18] LABS: ERYTHROCYTE SEDIMENTATION RATE 33 mm/hr (0-20)
--- NOTE | 2019-01-13 20:25 | REPVR ---
EXAM: US Duplex Right Lower Extremity Veins, Limited EXAM DATE/TIME: 01/13/2019 8:04 PM CLINICAL HISTORY: 33 years old, female; Pain; Leg, upper; Right; Additional info: R/O dvt TECHNIQUE: Imaging protocol: Real-time Duplex ultrasound of the Right Lower Extremity with 2-D almanza scale, color Doppler flow and spectral waveform analysis. Limited exam was focused on the right lower extremity veins. COMPARISON: No relevant prior studies available. FINDINGS: Right deep veins: Heterogeneously hypoechoic, occlusive thrombus in the common femoral, femoral and popliteal veins. Soft tissues: Soft tissue swelling. IMPRESSION: Heterogeneously hypoechoic, occlusive thrombus in the common femoral, femoral and popliteal veins. Electronically signed by: Edison Almanzar On 01/13/2019 20:25:09 PM
[2019-01-13 20:27] LABS: ALBUMIN 2.8 GM/DL (3.2-5.2); ALT/SGPT 323 U/L (12-78); BILIRUBIN,DIRECT 0.2 MG/DL (0.0-0.2); BLOOD UREA NITROGEN 8 MG/DL (7-18); CALCIUM LEVEL 8.3 MG/DL (8.5-10.1); CARBON DIOXIDE LEVEL 29 MEQ/L (21-32); CHLORIDE LEVEL 100 MEQ/L (98-107); CREATININE FOR GFR 0.65 MG/DL (0.55-1.30); GLOMERULAR FILTRATION RATE > 60.0 (>60); GLUCOSE, FASTING 92 MG/DL (70-100); POTASSIUM SERUM 4.5 MEQ/L (3.5-5.1); SODIUM LEVEL 134 MEQ/L (136-145); TOTAL PROTEIN 7.1 GM/DL (6.4-8.2)
[2019-01-13] MEDS ORDERED: ISOVUE-370 76% 100ML VIAL (Q9967) As Ordered ONE (20:33)
[2019-01-13 20:49] LABS: INR 1.11; PROTHROMBIN TIME 14.4 SECONDS (12.1-14.4)
[2019-01-13] MEDS ORDERED: ENOXAPARIN 100MG/1ML SYRINGE (J1650) SC ONE (21:15)
--- NOTE | 2019-01-13 21:31 | REPVR ---
EXAM: CT Bilateral Angiogram of the Abdominal Aorta and Bilateral Lower Extremities (Run-off) With IV Contrast EXAM DATE/TIME: 01/13/2019 8:36 PM CLINICAL HISTORY: 33 years old, female; Foot pain; Bilateral; Additional info: Recent thrombolysis, lovenox x 2 days, worse swelling/pain TECHNIQUE: Imaging protocol: Bilateral CT angiogram of the abdominal aorta, pelvis and bilateral lower extremities with IV iodinated contrast. Coronal and sagittal reformatted images were created and reviewed. 3D rendering: MIP reconstructed images were created and reviewed. Radiation optimization: All CT scans at this facility use at least one of these dose optimization techniques: automated exposure control; mA and/or kV adjustment per patient size (includes targeted exams where dose is matched to clinical indication); or iterative reconstruction. Contrast material: ISOVUE 370; Contrast volume: 100 ml; Contrast route: IV; COMPARISON: No relevant prior studies available. FINDINGS: Aorta: No aortic aneurysm. No aortic dissection. Celiac trunk and mesenteric arteries: No occlusion or significant stenosis. Renal arteries: No occlusion or significant stenosis. Right iliac arteries: No occlusion or significant stenosis. Right femoral/popliteal arteries: No occlusion or significant stenosis. Right infrapopliteal arteries: No occlusion or significant stenosis. Left iliac arteries: No occlusion or significant stenosis. Left femoral/popliteal arteries: No occlusion or significant stenosis. Left infrapopliteal arteries: No occlusion or significant stenosis. Lungs: Mild linear stranding and groundglass at the lung bases, likely due to atelectasis and/or scarring. Liver: Mild hepatomegaly. Gallbladder and bile ducts: Status post cholecystectomy. No biliary ductal dilatation. Pancreas: Unremarkable. No mass. No ductal dilation. Spleen: Normal. No splenomegaly. Adrenals: Normal. No mass. Kidneys and ureters: Normal. No mass. Stomach and bowel: Unremarkable. No obstruction. No mucosal thickening. Appendix: No evidence of appendicitis. Bladder: Unremarkable. No mass. Reproductive: Unremarkable as visualized. Intraperitoneal space: Unremarkable. No free air. No significant fluid collection. Lymph nodes: No lymphadenopathy. Bones/joints: No acute osseous abnormality. Small right suprapatellar effusion. Soft tissues: Moderate right lower extremity soft tissue swelling and subcutaneous edema, most pronounced about the thigh. No organized collection. Inferior vena cava: IVC filter in place. Prominence of the inferior vena cava, as well as the right iliac veins and right lower extremity venous system with associated perivascular edema, likely related to underlying deep venous thrombosis, suboptimally evaluated due to the phase of contrast-enhancement. Subcutaneous varices in the anterior abdominal and pelvic ponce. IMPRESSION: 1. No acute arterial abnormality. 2. Prominence of the inferior vena cava, as well as the right iliac veins and right lower extremity venous system with associated perivascular edema, likely related to underlying deep venous thrombosis, suboptimally evaluated due to the phase of contrast-enhancement. 3. Moderate right lower extremity soft tissue swelling and subcutaneous edema, most pronounced about the thigh. No organized collection. 4. Additional findings, as above. Electronically signed by: Edison Almanzar On 01/13/2019 21:31:27 PM
[2019-01-14] VITALS (9 sets, daily range): BP systolic 112–138; BP diastolic 71–79; O2SAT 96
[2019-01-14] MEDS ORDERED: LOVE0.8I SC (01:21)
[2019-01-14] MEDS ORDERED: OXYC1TAB23 PO (01:21)
[2019-01-14] MEDS ORDERED: fentaNYL 100 MCG/2 ML INJECTION (J3010) IV ONE (01:45)
[2019-01-14] MEDS ORDERED: PERCOCET 5MG/325MG TAB PO PRN (02:15)
[2019-01-14] MEDS ORDERED: ACETAMINOPHEN TAB 650MG DOSE (2X325MG) PO PRN (02:15)
[2019-01-14] MEDS: MORPHINE 10 MG/ML 1ML VIAL (J2270) IV PRN ×4 (03:48→15:46)
--- NOTE | 2019-01-14 07:25 | HPE ---
DATE OF ADMISSION: 01/14/2019 ATTENDING PHYSICIAN: Dr. Henry Dash. CHIEF COMPLAINT: Worsening pain and swelling in the right lower extremity. HISTORY OF PRESENT ILLNESS: The patient is a 33-year-old white female with history of antithrombin 3 deficiency and a recurrent blood clot who presents to the hospital for worsening pain and swelling in her right lower extremity. The history is provided by herself. She states back to 2009 she was diagnosed with DVT and a PE and she was found to have antithrombin 3 deficiency. Initially she was treated with Coumadin and then switched to Eliquis and she also had an IVC filter placed in 2011. She was admitted to the hospital here recently on 01/06/2019 due to worsening swelling and pain in her right lower extremity which she was found to have an extensive DVT. She was consulted by vascular surgery. Dr. Winn preformed thrombolytic treatment for her. She was discharged home on 01/11/2019 with subcutaneous injection of Lovenox at 100 mg twice a day. She states after discharge from hospital she continued to use the subcutaneous injection of Lovenox and she was taking Percocet for pain control. However she states that he pain is intolerable and swelling has gotten worse so she decided to come back to the hospital for further evaluation. In the ER she underwent lower extremity CT angiogram which did not show any anterior thrombosis however she had a Doppler done which demonstrated extensive DVT and vascular surgeon Dr. Winn was contacted by the ER attending who recommend to admit to the medicine service. REVIEW OF SYSTEMS: Denies fever, no chills. No shortness of breath. No chest pain. No abdomen pain. No nausea and no vomiting. No diarrhea. She has worse pain and swelling in her lower extremity. All other systems reviewed were negative. PAST MEDICAL HISTORY: Recurrent PE and DVT and asthma. PAST SURGICAL HISTORY: IVCP replaced in 2011, cystectomy in 2014, times 4, tonsillectomy. ALLERGIES: She is allergic to clindamycin and cephalexin. SOCIAL HISTORY: She smokes cigarettes, 2 packs a day for about 24 years and quit recently. No alcohol abuse. She also sometimes smoke marijuana. She is living with her fiance. She has 4 children and she is a [employer]. FAMILY HISTORY: Mother, sister and a dad has had a blood clot. MEDICATIONS: Reviewed. PHYSICAL EXAMINATION: VITALS: Temperature 98.9, heart rate 91, respiratory rate 16, blood pressure 118/75, oxygen saturation 96% on room air. GENERAL: She is awake, alert and oriented time three. She is in acute pain and distress. HEENT: Atraumatic. Pupils are equal, round and mild jaundice. Extraocular muscles are intact. Ear, nose and throat are normal. Mouth mucous not dry. NECK: No JVD. LUNGS: Clear. No wheezing. No crackles. HEART: S1, S2 regular no murmur. ABDOMEN: Soft, bowel sounds positive and nontender. EXTREMITIES: She has swelling as well as tenderness in her right lower extremity and thigh, left side is normal. SKIN: No rash. NEUROLOGICAL: Focal. PSYCHOLOGIC: No acute psychosis. LABS: WBC 15.2, hemoglobin and hematocrit 12.9 and 39.8, platelets 198, sodium 134, potassium 4.5, chloride 100, bicarbonate 29, BUN 8, creatinine 0.96. Lower extremity Doppler as well as CT angiogram was reviewed. IMPRESSION: 1. Severe recurrent DVT in right lower extremity. 2. History of antithrombin 3 deficiency. 3. Morbid obesity. PLAN: Patient will be admitted to PCU. I will treat her with Heparin drip as well as pain control and vascular surgical service need to be consulted in the morning.
[2019-01-14] MEDS: GABAPENTIN 400 MG CAP PO SCH ×3 (08:32→20:55)
[2019-01-14] MEDS: HEPARIN DRIP 25,000 UNITS in APPROPRIATE DILUENT 1 EA IV SCH (10:04)
[2019-01-14] MEDS ORDERED: oxyCODONE 5MG TAB PO PRN (11:00)
--- NOTE | 2019-01-14 11:02 | IPNPDOC ---
Subjective Date Seen The patient was seen on 01/14/19. Subjective Chief Complaint/HPI Pt come back to [facility] ED for increased pain and swelling of RLE. She reports compliance with use of Lovenox. She denies SOB, CP. She states that for the last 2 days she has had a brownish tinged vaginal d/c that is foul smelling. LMP ended over the weekend. Villanueva last about 2 weeks ago. Denies abd pain/pelvic pain. General: Reports: Fatigue Constitutional: Denies: Chills, Fever Skin: Denies: Rash Pulmonary: Denies: Dyspnea, Cough Cardiovascular: Reports: Edema (RLE); Denies: Chest Pain, Palpitations Gastrointestinal: Denies: Nausea, Vomiting, Diarrhea Genitourinary: Reports: Other Symptoms Hematologic: Reports: Bruising (R upper thigh) Musculoskeletal: Reports: Leg Pain (RLE) Psych: Reports: Anxiety Objective Physical Examination General Exam: Positive: Alert, Cooperative, No Acute Distress ENT Exam: Positive: Mucous membr. moist/pink Neck Exam: Positive: Supple Chest Exam: Positive: Clear to auscultation, Normal air movement Heart Exam: Positive: Rate Normal, Normal S1, Normal S2 Abdomen Exam: Positive: Normal bowel sounds, Soft; Negative: Tenderness Extremity Exam: Positive: Edema (RLE edematous to buttocks, appears slightly larger than when last seen on Thursday, 01/11. deep blue eccymosis on upper ant thigh, near groin) Neuro Exam: Positive: Normal Speech Psych Exam: Positive: Mood NL Assessment /Plan Problems (1) Leukocytosis Status: Acute Problem Text: 01/14 16.4 (01/11 10), 1600 temp to 100.1, check BCX, UCX, tc CT AP 01/13 CTA chest: IMPRESSION: 1. No acute arterial abnormality. 2. Prominence of the inferior vena cava, as well as the right iliac veins and right lower extremity venous system with associated perivascular edema, likely related to underlying deep venous thrombosis, suboptimally evaluated due to the phase of contrast-enhancement. (2) Elevated liver enzymes Status: Acute Problem Specific Plan: Monitor Clinically, Repeat Labs Problem Text: cw acute mild hepatitis, check mcgill; no RUQ pain 01/14/19 liver US cw fatty liver 01/14/19 127/255/218 (decreased cw 01/13/19) 4/3/19 21/32/71 (3) Deep vein thrombosis of right lower extremity Status: Acute Problem Specific Plan: Monitor Clinically Problem Text: 01/14/19 1700 co severe 10/10 RLE pain, minimal relief c MSO4 5 IV; therefore, changed to HM 1-1.6 [address] Winn has been consulted, at this time he doesn't feel further intervention is appropriate. He recommends pain control, elevation of the leg and continued anticoagulation, which she will need lifelong. I have adjusted her Pain control this morning, in part because her pain isn't well controlled but also because her LFTs are elevated and the acetaminophen has now been d/c'd. I have requested that Pa place a consult on the chart. 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 Response to Treatment: Stable (5) Antithrombin III deficiency Status: Chronic Response to Treatment: Stable Problem Specific Plan: Monitor Clinically Problem Text: Lifelong anticoag with enoxaparin d/t failure on Coumadin and Eliquis (6) Vaginal discharge Status: Acute Problem Specific Plan: Monitor Clinically Problem Text: Culture ordered Plan/VTE VTE Prophylaxis Ordered?: Yes VS, I&O, 24H, Fishbone Vital Signs/I&O Vital Signs Date Time Temp Pulse Resp B/P (MAP) Pulse Ox O2 Delivery O2 Flow Rate FiO2 01/14/19 08:42 20 01/14/19 08:00 98.3 87 123/73 (90) 94 01/14/19 03:48 18.0 01/14/19 03:00 Room Air I&O- Last 24 Hours up to 6 AM 01/14/19 06:00 Intake Total 120 ml Balance 120 ml Laboratory Data 24H LABS Laboratory Tests 2 01/13/19 19:09: Immature Granulocyte % (Auto) 1.0, White Blood Count 15.5H, Red Blood Count 4.25, Hemoglobin 12.9, Hematocrit 39.8, Mean Corpuscular Volume 93.6, Mean Corpuscular Hemoglobin 30.4, Mean Corpuscular Hemoglobin Concent 32.4, Red Cell Distribution Width 13.1, Platelet Count 198, Neutrophils (%) (Auto) 76.2H, Lymphocytes (%) (Auto) 12.1L, Monocytes (%) (Auto) 9.1H, Eosinophils (%) (Auto) 1.1, Basophils (%) (Auto) 0.5, Neutrophils # (Auto) 11.8H, Lymphocytes # (Auto) 1.9, Monocytes # (Auto) 1.4H, Eosinophils # (Auto) 0.2, Basophils # (Auto) 0.1, Nucleated Red Blood Cells % (auto) 0.0, Erythrocyte Sedimentation Rate 33H, Anion Gap 5L, Glomerular Filtration Rate > 60.0, Calcium Level 8.3L, Aspartate Amino Transf (AST/SGOT) 217H, Alanine Aminotransferase (ALT/SGPT) 323H, Alkaline Phosphatase 245H, Total Bilirubin 1.0, Direct Bilirubin 0.2, C-Reactive Protein, Quantitative 18.20H, Total Protein 7.1, Albumin 2.8L, Albumin/Globulin Ratio 0.65L 01/13/19 19:41: POC Glucose (Misc Panel) 102, POC Sodium (Misc Panel) 135L, POC Potassium (Misc Panel) 4.2, POC Chloride (Misc Panel) 95L, POC Total CO2 (Misc Panel) 29.0H, POC Blood Urea Nitrogen (Misc Panel 6L, POC Ionized Calcium (Misc Panel) 4.3L, POC Creatinine (Misc Panel) 0.6, POC Hematocrit (Misc Panel) 40.0 01/13/19 19:46: POC Lactate (Misc Panel) 1.19 01/13/19 19:56: POC Beta HCG, Quantitative < 5.0 01/13/19 20:29: Prothrombin Time 14.4, Prothromb Time International Ratio 1.11, Activated Partial Thromboplast Time 20.0L 01/14/19 08:15: Activated Partial Thromboplast Time 37.6 CBC/BMP Laboratory Tests 01/13/19 19:09 Red Blood Count 4.25, Mean Corpuscular Volume 93.6, Mean Corpuscular Hemoglobin 30.4, Mean Corpuscular Hemoglobin Concent 32.4, Red Cell Distribution Width 13.1, Neutrophils (%) (Auto) 76.2 H, Lymphocytes (%) (Auto) 12.1 L, Monocytes (%) (Auto) 9.1 H, Eosinophils (%) (Auto) 1.1, Basophils (%) (Auto) 0.5, Neutrophils # (Auto) 11.8 H, Lymphocytes # (Auto) 1.9, Monocytes # (Auto) 1.4 H, Eosinophils # (Auto) 0.2, Basophils # (Auto) 0.1 LYSSA VELÁZQUEZ PA-C Jan 14, 2019 11:02 Henry Dash M.D. Jan 14, 2019 17:07
[2019-01-14 11:33] LABS: BASO # 0.1 10^3/uL (0.0-0.2); BASO % 0.5 % (0.0-1.0); EOS # 0.1 10^3/uL (0.0-0.50); EOS % 0.9 % (0.0-3.0); HEMATOCRIT 36.5 % (36.0-47.0); LYMPH # 2.1 10^3/uL (1.5-4.5); MEAN CORPUSCULAR HEMOGLOBIN 30.7 pg (27.0-33.0); MEAN CORPUSCULAR HGB CONC 32.9 g/dl (32.0-36.5); MEAN CORPUSCULAR VOLUME 93.4 fl (80.0-96.0); MONO % 11.9 % (0.0-5.0); NEUTROPHILS # 11.9 10^3/uL (1.8-7.7); NEUTROPHILS % 72.4 % (36.0-66.0); PLATELET COUNT, AUTOMATED 209 10^3/uL (150-450); RED BLOOD COUNT 3.91 10^6/uL (4.00-5.40); WHITE BLOOD COUNT 16.4 10^3/uL (4.0-10.0)
[2019-01-14 11:40] LABS: ALBUMIN 2.3 GM/DL (3.2-5.2); ALT/SGPT 255 U/L (12-78); BILIRUBIN,TOTAL 0.9 MG/DL (0.2-1.0); BLOOD UREA NITROGEN 7 MG/DL (7-18); CARBON DIOXIDE LEVEL 29 MEQ/L (21-32); CHLORIDE LEVEL 100 MEQ/L (98-107); CREATININE FOR GFR 0.57 MG/DL (0.55-1.30); GLOMERULAR FILTRATION RATE > 60.0 (>60); GLUCOSE, FASTING 101 MG/DL (70-100); POTASSIUM SERUM 4.1 MEQ/L (3.5-5.1); SODIUM LEVEL 135 MEQ/L (136-145); TOTAL PROTEIN 6.2 GM/DL (6.4-8.2)
--- NOTE | 2019-01-14 11:56 | CR.PDOC ---
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 States she was diagnosed with ATIII deficiency in 2015. She has had recurrent blood clots in her legs as well as her lungs. She has sustained a stroke without residual deficits. She was previously on Eliquis prior to most recent admission. She has an IVC filter in place which was placed in 2012. She was on Lovenox during her pregnancies in 2010 and 2014. States she has previously failed Coumadin, per pt she was previously on Coumadin in the past but was taking very large doses (20 mg po BID per pt) without therpeutic INR. The pt was found to have BLE DVT, vascular surgery consulted during her recent admission with thrombolysis as per Dr Winn discharged 01/11/19. Pt reported to [facility] ED 01/13/19 with RLE edema and erythema. Denies any fevers, chills, weakness, fatigue, Headache, Chest Pain, Shortness of breath, cough, palpitations, abdominal pain, N/V/D or changes in bowel or bladder habits. Medical History Anti-thrombin III deficiency. On Eliquis AC Recurrent thromboembolic disease Asthma Recurrent DVT s/p IVC filter Tobacco dependence Pulmonary embolism H/O CVA, no residual effect. Surgical History CS - 2006, 2008, 2010, 2014 Stillborn vaginal delivery - 2007 Miscarriage - 2012 Termination of - 2013 Cholecystectomy IVC filter placement Tubal ligation Tonsillectomy and adenoidectomy SOCHX: Father: Alive, 59, seizure disorder, blood clot in brain Mother: Aliver, 56, anti-thrombin III deficiency Siblings Sister x1, alive, 34, anti-thrombin III deficiency Social History Smoker: current smoker (36 pack year history) Alcohol: rarely Drugs: marijuana ROS: As noted in HPI, otherwise 11pt ROS of systems reviewed and remarkable only for LMP 01/06/19. PE: GEN: 33yoF, appears stated age. Well-nourished, well developed. No acute distress. Alert and oriented x 3. Pleasant, interactive. HEENT: Normocephalic, atraumatic. Sclera are nonicteric. Conjunctiva without injection. No facial asymmetry. Moist mucous membranes. CHEST: Regular rate and rhythm, +S1, +S2 LUNGS: Clear to auscultation bilaterally. No wheezes, rales, or rhonchi. Breathing appears symmetric and easy. Patient is speaking in full sentences. ABD: Round, soft, non-tender, non-distended. +Bowel sounds throughout. No rebo und or guarding. No costovertebral angle tenderness. EXT: Pulses 2+ bilaterally dorsalis pedis and radial. Appears to have generalized swelling and erythema RLE. No warmth, mild TTP. Area of ecchymosis Rt groin area related to previous procedure. SKIN: [place], dry, warm. Good Capillary refill No rashes. NEURO: Alert and oriented x 3. Cranial nerves III-XII are intact. No focal deficits appreciated. LE US IMPRESSION: Heterogeneously hypoechoic, occlusive thrombus in the common femoral, femoral and popliteal veins. Electronically signed by: Edison Almanzar On 01/13/2019 20:25:09 PM CTA IMPRESSION: 1. No acute arterial abnormality. 2. Prominence of the inferior vena cava, as well as the right iliac veins and right lower extremity venous system with associated perivascular edema, likely related to underlying deep venous thrombosis, suboptimally evaluated due to the phase of contrast-enhancement. 3. Moderate right lower extremity soft tissue swelling and subcutaneous edema, most pronounced about the thigh. No organized collection. 4. Additional findings, as above. Electronically signed by: Edison Almanzar On 01/13/2019 21:31:27 PM A&P: 1. Bilateral lower extremity DVT 2/2 anti-thrombin III deficiency IVC filter in place S/P thrombolysis as per Dr Winn during most recent admission. Heparin gtt. pain control Dr Winn has reviewed and examined pt as well as current CTA images. The pt's RLE appears to be well perfused, no phlegmasia noted. The pt is not felt to be a candidate for any additional intervention. Would recommend conservative mgmt. Elevation RLE. Pain control. 2. anti-thrombin III deficiency. Heparin gtt currently. States has previously been on Coumadin in past but despite high doses was not therapeutic. Previously failed Eliquis. Follows as outpt with [facility] Hematology, previously saw Dr Steward. Since pt has failed both Coumadin and NOAC, recommendation for lifelong Lovenox. 3. H/O recurrent DVT/PE, S/P IVC filter 2013. 4. Tobacco use. Would strongly recommend cessation. Vital Signs/I&O Vital Signs Date Time Temp Pulse Resp B/P (MAP) Pulse Ox O2 Delivery O2 Flow Rate FiO2 01/14/19 08:42 20 01/14/19 08:00 98.3 87 123/73 (90) 94 01/14/19 03:48 18.0 01/14/19 03:00 Room Air I&O- Last 24 Hours up to 6 AM 01/14/19 06:00 Intake Total 120 ml Balance 120 ml Laboratory Data Labs 24H Laboratory Tests 2 01/13/19 19:09: Immature Granulocyte % (Auto) 1.0, White Blood Count 15.5H, Red Blood Count 4.25, Hemoglobin 12.9, Hematocrit 39.8, Mean Corpuscular Volume 93.6, Mean Corpuscular Hemoglobin 30.4, Mean Corpuscular Hemoglobin Concent 32.4, Red Cell Distribution Width 13.1, Platelet Count 198, Neutrophils (%) (Auto) 76.2H, Lymphocytes (%) (Auto) 12.1L, Monocytes (%) (Auto) 9.1H, Eosinophils (%) (Auto) 1.1, Basophils (%) (Auto) 0.5, Neutrophils # (Auto) 11.8H, Lymphocytes # (Auto) 1.9, Monocytes # (Auto) 1.4H, Eosinophils # (Auto) 0.2, Basophils # (Auto) 0.1, Nucleated Red Blood Cells % (auto) 0.0, Erythrocyte Sedimentation Rate 33H, Anion Gap 5L, Glomerular Filtration Rate > 60.0, Calcium Level 8.3L, Aspartate Amino Transf (AST/SGOT) 217H, Alanine Aminotransferase (ALT/SGPT) 323H, Alkaline Phosphatase 245H, Total Bilirubin 1.0, Direct Bilirubin 0.2, C-Reactive Protein, Quantitative 18.20H, Total Protein 7.1, Albumin 2.8L, Albumin/Globulin Ratio 0.65L 01/13/19 19:41: POC Glucose (Misc Panel) 102, POC Sodium (Misc Panel) 135L, POC Potassium (Misc Panel) 4.2, POC Chloride (Misc Panel) 95L, POC Total CO2 (Misc Panel) 29.0H, POC Blood Urea Nitrogen (Misc Panel 6L, POC Ionized Calcium (Misc Panel) 4.3L, POC Creatinine (Misc Panel) 0.6, POC Hematocrit (Misc Panel) 40.0 01/13/19 19:46: POC Lactate (Misc Panel) 1.19 01/13/19 19:56: POC Beta HCG, Quantitative < 5.0 01/13/19 20:29: Prothrombin Time 14.4, Prothromb Time International Ratio 1.11, Activated Partial Thromboplast Time 20.0L 01/14/19 08:15: Activated Partial Thromboplast Time 37.6 CBC/BMP Laboratory Tests 01/13/19 19:09 Red Blood Count 4.25, Mean Corpuscular Volume 93.6, Mean Corpuscular Hemoglobin 30.4, Mean Corpuscular Hemoglobin Concent 32.4, Red Cell Distribution Width 13.1, Neutrophils (%) (Auto) 76.2 H, Lymphocytes (%) (Auto) 12.1 L, Monocytes (%) (Auto) 9.1 H, Eosinophils (%) (Auto) 1.1, Basophils (%) (Auto) 0.5, Neutrophils # (Auto) 11.8 H, Lymphocytes # (Auto) 1.9, Monocytes # (Auto) 1.4 H, Eosinophils # (Auto) 0.2, Basophils # (Auto) 0.1 Allergies Coded Allergies: Penicillins (Verified Allergy, Severe, anaphylaxis, 01/13/19) clindamycin (Verified Allergy, Mild, rash, 01/13/19) cephalexin (Verified Adverse Reaction, Intermediate, SEVERE YEAST INFECTION, 01/13/19) Home Medications Scheduled Enoxaparin Sodium (Lovenox) 100 Mg/1 Ml Syringe, 100 MG SC Q12H, (Reported) Gabapentin (Neurontin) 800 Mg Tab, 800 MG PO TID, (Reported) Scheduled PRN Albuterol Sulfate (Ventolin Hfa) 18 Gm Hfa.aer.ad, 2 PUFF INH Q4H PRN for SHORTNESS OF BREATH, (Reported) Cyclobenzaprine HCl (Cyclobenzaprine HCl) 10 Mg Tab, 10 MG PO TID PRN for MUSCLE SPASMS, (Reported) Oxycodone HCl/Acetaminophen (Oxycodone-Acetaminophen 5-325) 1 Each Tablet, 1 TAB PO Q6H PRN for PAIN, (Reported) Grace Tapia Jan 14, 2019 11:22
[2019-01-14] MEDS: oxyCODONE 5MG TAB PO PRN ×2 (12:43→18:28)
--- NOTE | 2019-01-14 15:39 | REP ---
Hepatic sonography: History: Elevated LFTs. Findings: Scanning through the right upper quadrant of the abdomen demonstrates a mildly hyperechoic somewhat coarse liver consistent with fatty infiltration. Pancreas is obscured by abdominal gas. Gallbladder surgically absent. Common bile duct is normal post cholecystectomy of 0.65 cm. There is no evidence of ascites or right renal abnormality. The right kidney measures 11.3 x 6.2 x 4.7 cm. Impression: Somewhat coarse liver texture mildly hyperechoic liver consistent with fatty infiltration. Post cholecystectomy. Otherwise negative. Electronically Signed by Cisco Madden MD 01/14/2019 03:31 P
[2019-01-14] MEDS: HYDROMORPHONE HCL 0.5 MG/ 0.5 ML SYRINGE (J1170 PER 1) IV PRN (20:55)
[2019-01-14] MEDS: HEPARIN SOD (PORCINE) 5000 UNITS/ML VIAL IV PRN (23:37)
[2019-01-15] VITALS (24 sets, daily range): BP systolic 102–128; BP diastolic 57–79; O2SAT 89–99
[2019-01-15] MEDS: HYDROmorphone HCL 2 MG/ML 1ML VIAL (J1170) IV PRN ×8 (00:06→23:53)
[2019-01-15] MEDS: HEPARIN DRIP 25,000 UNITS in APPROPRIATE DILUENT 1 EA IV SCH ×2 (03:00→15:33)
[2019-01-15 06:32] LABS: HEMATOCRIT 37.1 % (36.0-47.0); HEMOGLOBIN 12.2 g/dl (12.0-15.5); MEAN CORPUSCULAR HEMOGLOBIN 30.4 pg (27.0-33.0); MEAN CORPUSCULAR HGB CONC 32.9 g/dl (32.0-36.5); MEAN CORPUSCULAR VOLUME 92.5 fl (80.0-96.0); PLATELET COUNT, AUTOMATED 235 10^3/uL (150-450); RED BLOOD COUNT 4.01 10^6/uL (4.00-5.40); WHITE BLOOD COUNT 16.1 10^3/uL (4.0-10.0)
[2019-01-15 06:52] LABS: ALBUMIN 2.2 GM/DL (3.2-5.2); ALT/SGPT 185 U/L (12-78); BILIRUBIN,TOTAL 0.8 MG/DL (0.2-1.0); BLOOD UREA NITROGEN 5 MG/DL (7-18); CARBON DIOXIDE LEVEL 32 MEQ/L (21-32); CHLORIDE LEVEL 97 MEQ/L (98-107); CREATININE FOR GFR 0.71 MG/DL (0.55-1.30); GLOMERULAR FILTRATION RATE > 60.0 (>60); GLUCOSE, FASTING 106 MG/DL (70-100); POTASSIUM SERUM 4.5 MEQ/L (3.5-5.1); SODIUM LEVEL 135 MEQ/L (136-145); TOTAL PROTEIN 6.1 GM/DL (6.4-8.2)
[2019-01-15] MEDS: HEPARIN SOD (PORCINE) 5000 UNITS/ML VIAL IV PRN ×2 (07:39→23:49)
[2019-01-15] MEDS: oxyCODONE 5MG TAB PO PRN ×4 (07:43→22:16)
[2019-01-15] MEDS: GABAPENTIN 400 MG CAP PO SCH ×3 (09:33→20:06)
--- NOTE | 2019-01-15 15:34 | IPNPDOC ---
Subjective Date Seen The patient was seen on 01/15/19. Subjective Chief Complaint/HPI leg pain is a little better with the change to IV hydromorphone Constitutional: Denies: Chills ENT: Denies: Head Aches Skin: Reports: Rash (reddening of right thigh ) Pulmonary: Denies: Dyspnea, Cough Cardiovascular: Denies: Chest Pain, Palpitations Gastrointestinal: Denies: Nausea, Vomiting Hematologic: Denies: Bruising Musculoskeletal: Reports: Leg Pain (right thigh especially) Psych: Reports: Mood Normal Objective Physical Examination General Exam: Positive: Alert, Cooperative, No Acute Distress ENT Exam: Positive: Mucous membr. moist/pink Neck Exam: Positive: Supple Chest Exam: Positive: Clear to auscultation, Normal air movement Heart Exam: Positive: Rate Normal, Normal S1, Normal S2 Abdomen Exam: Positive: Normal bowel sounds, Soft; Negative: Tenderness Female Exam: Positive: Nl Ext Genitalia, Discharge, Odor (vaginits dna probe ssample collected. and urine for gc/chlamydia/trich ordered) Extremity Exam: Positive: Edema (swollen right leg. moderately erythematous over proximal right thigh) Skin Exam: Positive: Rash (red right leg, especially over medial thigh) Neuro Exam: Positive: Normal Speech Psych Exam: Positive: Mood NL Assessment /Plan Problems (1) Leukocytosis Status: Acute Problem Text: 01/14 16.4 (01/11 10), 1600 temp to 100.1, check BCX, UCX, tc CT AP 01/13 CTA chest: IMPRESSION: 1. No acute arterial abnormality. 2. Prominence of the inferior vena cava, as well as the right iliac veins and right lower extremity venous system with associated perivascular edema, likely related to underlying deep venous thrombosis, suboptimally evaluated due to the phase of contrast-enhancement. (2) Elevated liver enzymes Status: Acute Problem Specific Plan: Monitor Clinically, Repeat Labs Problem Text: 01/15, still no tenderness RUQ, no guarding. transaminases slightly better, alk phos a little higher. cw acute mild hepatitis, check mcgill; no RUQ pain 01/14/19 liver US cw fatty liver 01/14/19 127/255/218 (decreased cw 01/13/19) 11/03/18 21/32/71 (3) Deep vein thrombosis of right lower extremity Status: Acute Problem Specific Plan: Monitor Clinically Problem Text: 01/15 pain is a little better with current meds. continue Heparin 01/14/19 1700 co severe 10/10 RLE pain, minimal relief c MSO4 5 IV; therefore, changed to HM 1-1.[address] Winn has been consulted, at this time he doesn't feel further intervention is appropriate. He recommends pain control, elevation of the leg and continued anticoagulation, which she will need lifelong. I have adjusted her Pain control this morning, in part because her pain isn't well controlled but also because her LFTs are elevated and the acetaminophen has now been d/c'd. I have requested that Pa place a consult on the chart. 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 patient says it doesn't feel like yeast which she has had before. Plan/VTE VTE Prophylaxis Ordered?: Yes VS, I&O, 24H, Fishbone Vital Signs/I&O Vital Signs Date Time Temp Pulse Resp B/P (MAP) Pulse Ox O2 Delivery O2 Flow Rate FiO2 01/15/19 13:16 18 01/15/19 12:00 98.4 100 128/78 (95) 95 01/15/19 06:00 Room Air 01/14/19 03:48 18.0 I&O- Last 24 Hours up to 6 AM 01/15/19 06:00 Intake Total 1180 ml Output Total 1325 ml Balance -145 ml Laboratory Data 24H LABS Laboratory Tests 2 01/14/19 15:55: Activated Partial Thromboplast Time 37.8H 01/14/19 17:31: 01/14/19 22:51: Activated Partial Thromboplast Time 47.6H 01/15/19 05:53: Activated Partial Thromboplast Time 49.4H, Nucleated Red Blood Cells % (auto) 0.0, Anion Gap 6L, Glomerular Filtration Rate > 60.0, Blood Urea Nitrogen 5L, Creatinine 0.71, Sodium Level 135L, Potassium Level 4.5, Chloride Level 97L, Carbon Dioxide Level 32, Calcium Level 8.0L, Aspartate Amino Transf (AST/SGOT) 76H, Alanine Aminotransferase (ALT/SGPT) 185H, Alkaline Phosphatase 250H, Total Bilirubin 0.8, Total Protein 6.1L, Albumin 2.2L, Albumin/Globulin Ratio 0.56L 01/15/19 13:48: Activated Partial Thromboplast Time 73.5H CBC/BMP Laboratory Tests 01/15/19 05:53 Red Blood Count 4.01, Mean Corpuscular Volume 92.5, Mean Corpuscular Hemoglobin 30.4, Mean Corpuscular Hemoglobin Concent 32.9, Red Cell Distribution Width 13.0, Calcium Level 8.0 L, Aspartate Amino Transf (AST/SGOT) 76 H, Alanine Aminotransferase (ALT/SGPT) 185 H, Alkaline Phosphatase 250 H, Total Bilirubin 0.8, Total Protein 6.1 L, Albumin 2.2 L Microbiology Microbiology 01/14/19 Blood Culture, Received Pending 01/14/19 Blood Culture, Received Pending Adalid Laughlin MD Jan 15, 2019 15:34
[2019-01-15] MEDS: BISACODYL 10 MG SUPP PR SCH (17:50)
[2019-01-15] MEDS: MIRALAX *UNIT DOSE* 17GM PACKET PO PRN (17:55)
[2019-01-15] MEDS: SENOKOT S TAB PO SCH (20:06)
[2019-01-15 21:00] LABS: CHLAMYDIA DNA AMPLIFICATION NEGATIVE (NEGATIVE); GC DNA AMPLIFICATION NEGATIVE (NEGATIVE)
[2019-01-16] VITALS (24 sets, daily range): BP systolic 106–127; BP diastolic 56–82; O2SAT 88–100
[2019-01-16] MEDS: oxyCODONE 5MG TAB PO PRN ×4 (02:04→21:32)
[2019-01-16] MEDS: HEPARIN DRIP 25,000 UNITS in APPROPRIATE DILUENT 1 EA IV SCH ×3 (03:01→22:34)
[2019-01-16] MEDS: HYDROmorphone HCL 2 MG/ML 1ML VIAL (J1170) IV PRN ×6 (03:21→20:04)
[2019-01-16] MEDS: MIRALAX *UNIT DOSE* 17GM PACKET PO PRN (08:59)
[2019-01-16] MEDS: GABAPENTIN 400 MG CAP PO SCH ×3 (09:00→20:49)
[2019-01-16] MEDS: BISACODYL 10 MG SUPP PR SCH (09:00)
[2019-01-16] MEDS: SENOKOT S TAB PO SCH ×2 (09:00→20:48)
[2019-01-16] MEDS: metroNIDAZOLE (FLAGYL) 500 MG TAB PO SCH ×2 (09:44→20:49)
--- NOTE | 2019-01-16 13:11 | IPNPDOC ---
Subjective Date Seen The patient was seen on 01/16/19. Subjective Chief Complaint/HPI still having a lot of pain in leg but would like to try to shower today Constitutional: Denies: Chills ENT: Denies: Head Aches Pulmonary: Denies: Dyspnea, Cough Cardiovascular: Denies: Chest Pain, Palpitations, Orthopnea Gastrointestinal: Denies: Nausea, Vomiting, Abdominal Pain Objective Physical Examination General Exam: Positive: Alert, Cooperative, No Acute Distress ENT Exam: Positive: Mucous membr. moist/pink Neck Exam: Positive: Supple Chest Exam: Positive: Clear to auscultation, Normal air movement Heart Exam: Positive: Rate Normal, Normal S1, Normal S2 Abdomen Exam: Positive: Normal bowel sounds, Soft; Negative: Tenderness Female Exam: Positive: Nl Ext Genitalia, Discharge, Odor (vaginits dna probe ssample collected. and urine for gc/chlamydia/trich ordered) Extremity Exam: Positive: Edema (leg is less swollen but still red at upper medial anterior thigh.) Skin Exam: Positive: Rash (red right leg, especially over medial thigh) Neuro Exam: Positive: Normal Speech Psych Exam: Positive: Mood NL Assessment /Plan Problems (1) Leukocytosis Status: Acute Problem Text: 01/16 no cbc ordered for today 01/14 16.4 (01/11 10), 1600 temp to 100.1, check BCX, UCX, tc CT AP 01/13 CTA chest: IMPRESSION: 1. No acute arterial abnormality. 2. Prominence of the inferior vena cava, as well as the right iliac veins and right lower extremity venous system with associated perivascular edema, likely related to underlying deep venous thrombosis, suboptimally evaluated due to the phase of contrast-enhancement. (2) Elevated liver enzymes Status: Acute Problem Specific Plan: Monitor Clinically, Repeat Labs Problem Text: 01/15, still no tenderness RUQ, no guarding. transaminases slightly better, alk phos a little higher. cw acute mild hepatitis, check mcgill; no RUQ pain 01/14/19 liver US cw fatty liver 01/14/19 127/255/218 (decreased cw 01/13/19) 11/03/18 21/32/71 (3) Deep vein thrombosis of right lower extremity Status: Acute Problem Specific Plan: Monitor Clinically Problem Text: 01/16 still significant pain but swelling has improved 01/15 pain is a little better with current meds. continue Heparin 01/14/19 1700 co severe 10/10 RLE pain, minimal relief c MSO4 5 IV; therefore, changed to HM 1-1.[address] Winn has been consulted, at this time he doesn't feel further intervention is appropriate. He recommends pain control, elevation of the leg and continued anticoagulation, which she will need lifelong. I have adjusted her Pain control this morning, in part because her pain isn't well controlled but also because her LFTs are elevated and the acetaminophen has now been d/c'd. I have requested that Pa place a consult on the chart. 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 Response to Treatment: Stable (5) Antithrombin III deficiency Status: Chronic Response to Treatment: Stable Problem Specific Plan: Monitor Clinically Problem Text: Lifelong anticoag with enoxaparin d/t failure on Coumadin and Eliquis (6) Vaginal discharge Status: Acute Problem Specific Plan: Monitor Clinically Problem Text: 01/16: identified T vaginalis, Rx ordered. Discussed STD issues. Culture ordered; collected dna vaginitis probe and urine for gc/chlamydia/trich. patient says it doesn't feel like yeast which she has had before. Plan/VTE VTE Prophylaxis Ordered?: Yes Plan Anticipated Discharge: Home VS, [facility] Vital Signs/I&O Vital Signs Date Time Temp Pulse Resp B/P (MAP) Pulse Ox O2 Delivery O2 Flow Rate FiO2 01/16/19 12:47 18 01/16/19 08:00 98.0 80 106/71 (83) 95 01/16/19 06:00 Room Air 01/14/19 03:48 18.0 I&O- Last 24 Hours up to 6 AM 01/16/19 06:00 Intake Total 2336 ml Output Total 2550 ml Balance -214 ml Laboratory Data 24H LABS Laboratory Tests 2 01/15/19 13:48: Activated Partial Thromboplast Time 73.5H 01/15/19 18:04: Chlamydia trachomatis DNA (ORA) NEGATIVE, Neisseria gonorrhoeae DNA (ORA) NEGATIVE, Trichomonas vaginalis (PCR) POSITIVEH 01/15/19 19:43: Activated Partial Thromboplast Time 52.5H 01/15/19 22:52: Activated Partial Thromboplast Time 59.5H 01/16/19 05:48: Activated Partial Thromboplast Time 76.6H Microbiology Microbiology 01/14/19 Blood Culture - Preliminary, Resulted No growth after 24 hours . All specim... 01/14/19 Blood Culture - Preliminary, Resulted No growth after 24 hours . All specim... 01/15/19 Genital Culture, Received Pending Adalid Laughlin MD Jan 16, 2019 13:11
[2019-01-16 14:06] LABS: BLOOD UREA NITROGEN 5 MG/DL (7-18); CALCIUM LEVEL 8.5 MG/DL (8.5-10.1); CARBON DIOXIDE LEVEL 29 MEQ/L (21-32); CHLORIDE LEVEL 96 MEQ/L (98-107); CREATININE FOR GFR 0.67 MG/DL (0.55-1.30); GLOMERULAR FILTRATION RATE > 60.0 (>60); GLUCOSE, FASTING 89 MG/DL (70-100); POTASSIUM SERUM 3.3 MEQ/L (3.5-5.1); SODIUM LEVEL 132 MEQ/L (136-145)
[2019-01-16] MEDS: HEPARIN SOD (PORCINE) 5000 UNITS/ML VIAL IV PRN (16:23)
[2019-01-16] MEDS: HYDROMORPHONE HCL 0.5 MG/ 0.5 ML SYRINGE (J1170 PER 1) IV PRN (17:49)
[2019-01-16] MEDS ORDERED: POTASSIUM CHLORIDE 10 MEQ SR TABLET PO ONE (18:00)
[2019-01-17] VITALS (25 sets, daily range): BP systolic 117–138; BP diastolic 57–73; O2SAT 91–100
[2019-01-17] MEDS: HYDROmorphone HCL 2 MG/ML 1ML VIAL (J1170) IV PRN ×7 (00:05→23:19)
[2019-01-17 05:13] LABS: HEMOGLOBIN 11.6 g/dl (12.0-15.5); MEAN CORPUSCULAR HEMOGLOBIN 30.6 pg (27.0-33.0); MEAN CORPUSCULAR HGB CONC 33.1 g/dl (32.0-36.5); MEAN CORPUSCULAR VOLUME 92.3 fl (80.0-96.0); PLATELET COUNT, AUTOMATED 179 10^3/uL (150-450); RED BLOOD COUNT 3.79 10^6/uL (4.00-5.40)
[2019-01-17] MEDS: oxyCODONE 5MG TAB PO PRN ×5 (05:26→21:54)
[2019-01-17 05:34] LABS: ALT/SGPT 94 U/L (12-78); BASOPHILS 1 % (0-4); BILIRUBIN,TOTAL 0.4 MG/DL (0.2-1.0); BLOOD UREA NITROGEN 6 MG/DL (7-18); CALCIUM LEVEL 8.6 MG/DL (8.5-10.1); CARBON DIOXIDE LEVEL 31 MEQ/L (21-32); CHLORIDE LEVEL 98 MEQ/L (98-107); CREATININE FOR GFR 0.68 MG/DL (0.55-1.30); EOSINOPHILS 2 % (0-5); GLOMERULAR FILTRATION RATE > 60.0 (>60); GLUCOSE, FASTING 102 MG/DL (70-100); LYMPHOCYTES 22 % (16-52); MAGNESIUM LEVEL 2.3 MG/DL (1.8-2.4); METAMYELOCYTES 2 % (0-0); MONOCYTES 7 % (0-8); NEUTROPHILS 65 % (35-75); PLATELET ESTIMATE NORMAL (NORMAL); POTASSIUM SERUM 3.7 MEQ/L (3.5-5.1); SODIUM LEVEL 134 MEQ/L (136-145); TOTAL PROTEIN 6.9 GM/DL (6.4-8.2)
[2019-01-17] MEDS: HEPARIN DRIP 25,000 UNITS in APPROPRIATE DILUENT 1 EA IV SCH ×2 (07:30→16:57)
--- NOTE | 2019-01-17 08:59 | IPNPDOC ---
Subjective Date Seen The patient was seen on 01/17/19. Subjective Chief Complaint/HPI DVT Events since last encounter patient remains in significant pain to RLE requiring Dilaudid and oxycodone alternating. Erythema and pain are spreading up past her thigh and hip into abdomen. Pulmonary: Denies: Dyspnea, Cough Cardiovascular: Denies: Chest Pain, Palpitations, Orthopnea, Paroxysmal Noc. Dyspnea, Lt Headedness Gastrointestinal: Reports: Constipation (+ flatus, no Bm x 7 days) Psych: Reports: Mood Normal, Anxiety; Denies: Depression, Memory Issues Objective Physical Examination General Exam: Positive: Alert, Cooperative, No Acute Distress ENT Exam: Positive: Mucous membr. moist/pink Neck Exam: Positive: Supple Chest Exam: Positive: Clear to auscultation, Normal air movement Heart Exam: Positive: Rate Normal, Normal S1, Normal S2 Abdomen Exam: Positive: Normal bowel sounds, Soft; Negative: Tenderness Extremity Exam: Positive: Edema (swelling up past thigh and hip into right trunk. red, warm tender. ) Skin Exam: Positive: Rash (red right leg, especially over medial thigh: orange peel appearance) Neuro Exam: Positive: Normal Speech Psych Exam: Positive: Mood NL Assessment /Plan Problems (1) Deep vein thrombosis of right lower extremity Status: Acute Problem Specific Plan: Monitor Clinically Problem Text: ? mechanical thrombectomy candidate 01/17/19: Currently with heparin drip. erythema and pain extending up into abdomen/trunk. Will contact vascular. 01/14/19 1700 co severe 10/10 RLE pain, minimal relief c MSO4 5 IV; therefore, changed to HM 1-1.[address] Winn has been consulted, at this time he doesn't feel further intervention is appropriate. He recommends pain control, elevation of the leg and continued anticoagulation, which she will need lifelong. 01/13 RLE venous US: FINDINGS: Right deep veins: Heterogeneously hypoechoic, occlusive thrombus in the common femoral, femoral and popliteal veins. Soft tissues: Soft tissue swelling. IMPRESSION: Heterogeneously hypoechoic, occlusive thrombus in the common femoral, femoral and popliteal veins. (2) Presence of inferior vena cava filter Status: Chronic Response to Treatment: Stable (3) Leukocytosis Status: Acute Problem Text: 01/17/19: WBC 13,000 01/16 no cbc ordered for today 01/14 16.4 (01/11 10), 1600 temp to 100.1, check BCX, UCX, tc CT AP 01/14 BCX2 NG 01/13 CTA chest: IMPRESSION: 1. No acute arterial abnormality. 2. Prominence of the inferior vena cava, as well as the right iliac veins and right lower extremity venous system with associated perivascular edema, likely related to underlying deep venous thrombosis, suboptimally evaluated due to the phase of contrast-enhancement. (4) Elevated liver enzymes Status: Acute Problem Specific Plan: Monitor Clinically, Repeat Labs Problem Text: 01/15, still no tenderness RUQ, no guarding. transaminases slightly better, alk phos a little higher. cw acute mild hepatitis, check mcgill; no RUQ pain 01/14/19 liver US cw fatty liver 01/14/19 127/255/218 (decreased cw 01/13/19) 11/03/18 21/32/71 (5) Antithrombin III deficiency Status: Chronic Response to Treatment: Stable Problem Specific Plan: Monitor Clinically Problem Text: Lifelong anticoag with enoxaparin d/t failure on Coumadin and Eliquis (6) Vaginal discharge Status: Acute Problem Specific Plan: Monitor Clinically Problem Text: 01/16: identified T vaginalis, Rx ordered. Discussed STD issues. Culture ordered; collected dna vaginitis probe and urine for gc/chlamydia/trich. patient says it doesn't feel like yeast which she has had before. Plan/VTE VTE Prophylaxis Ordered?: Yes Plan Anticipated Discharge: Home VS, I&O, 24H, Fishbone Vital Signs/I&O Vital Signs Date Time Temp Pulse Resp B/P (MAP) Pulse Ox O2 Delivery O2 Flow Rate FiO2 01/17/19 08:00 97.5 96 21 125/70 (88) 98 01/17/19 06:00 Room Air 01/14/19 03:48 18.0 I&O- Last 24 Hours up to 6 AM 01/17/19 06:00 Intake Total 1956 ml Output Total 1500 ml Balance 456 ml Laboratory Data 24H LABS Laboratory Tests 2 01/16/19 13:08: Activated Partial Thromboplast Time 46.7H, Anion Gap 7L, Glomerular Filtration Rate > 60.0, Blood Urea Nitrogen 5L, Creatinine 0.67, Sodium Level 132L, Potas sium Level 3.3#L, Chloride Level 96L, Carbon Dioxide Level 29, Calcium Level 8.5 01/16/19 22:36: Activated Partial Thromboplast Time 91.8H 01/17/19 04:38: Anion Gap 5L, Glomerular Filtration Rate > 60.0, Blood Urea Nitrogen 6L, Creatinine 0.68, Sodium Level 134L, Potassium Level 3.7, Chloride Level 98, Carbon Dioxide Level 31, Calcium Level 8.6, Immature Granulocyte % (Auto) , Nucleated Red Blood Cells % (auto) 0.0, Neutrophils 65, Band Neutrophils 1, Lym phocytes (Manual) 22, Monocytes (Manual) 7, Eosinophils (Manual) 2, Basophils (Manual) 1, Metamyelocytes 2H, Platelet Estimate NORMAL, Aspartate Amino Transf (AST/SGOT) 39H, Alanine Aminotransferase (ALT/SGPT) 94H, Alkaline Phosphatase 282H, Total Bilirubin 0.4, Total Protein 6.9, Albumin 2.0L, Magnesium Level 2.3, Albumin/Globulin Ratio 0.41L 01/17/19 04:39: Activated Partial Thromboplast Time 79.7H CBC/BMP Laboratory Tests 01/16/19 13:08 Calcium Level 8.5 01/17/19 04:38 Calcium Level 8.6, Red Blood Count 3.79 L, Mean Corpuscular Volume 92.3, Mean Corpuscular Hemoglobin 30.6, Mean Corpuscular Hemoglobin Concent 33.1, Red Cell Distribution Width 12.9, Aspartate Amino Transf (AST/SGOT) 39 H, Alanine Aminotransferase (ALT/SGPT) 94 H, Alkaline Phosphatase 282 H, Total Bilirubin 0.4, Total Protein 6.9, Albumin 2.0 L Microbiology Microbiology 01/14/19 Blood Culture - Preliminary, Resulted No Growth after 48 hours. All Specime... 01/14/19 Blood Culture - Preliminary, Resulted No Growth after 48 hours. All Specime... 01/15/19 Genital Culture, Received Pending Criselda Benitez Jan 17, 2019 08:59 Henry Dash M.D. Jan 17, 2019 16:57
[2019-01-17] MEDS: BISACODYL 10 MG SUPP PR SCH (09:00)
[2019-01-17 09:14] LABS: HEPATITIS A ANTIBODY IGM NEGATIVE (NEGATIVE); HEPATITIS B SURFACE ANTIGEN NEGATIVE (NEGATIVE); HEPATITIS C VIRUS ABY INDEX < 0.0 INDEX (<0.8)
[2019-01-17] MEDS: GABAPENTIN 400 MG CAP PO SCH ×3 (09:34→20:49)
[2019-01-17] MEDS: metroNIDAZOLE (FLAGYL) 500 MG TAB PO SCH ×2 (09:34→20:48)
[2019-01-17] MEDS: SENOKOT S TAB PO SCH ×2 (09:36→20:48)
--- NOTE | 2019-01-17 11:56 | IPNPDOC ---
Date Seen The patient was seen on 01/17/19. Progress Note Vascular Surgery Dr Lin HPI: 33year oldF with BLE DVT, re admitted with RLE edema and erythema. Vascular surgery re evaluating pt today as there was concern the pt had increased RLE edema. The pt has persistent RLE edema, erythema and pain. She has not been consistently elevating RLE. Medical History Anti-thrombin III deficiency. On Eliquis AC Recurrent thromboembolic disease Asthma Recurrent DVT s/p IVC filter Tobacco dependence Pulmonary embolism H/O CVA, no residual effect. Surgical History CS - 2006, 2008, 2010, 2014 Stillborn vaginal delivery - 2007 Miscarriage - 2012 Termination of - 2013 Cholecystectomy IVC filter placement Tubal ligation Tonsillectomy and adenoidectomy PE: GEN: 33yoF, appears stated age. Alert and oriented x 3. HEENT: Normocephalic, atraumatic. Sclera are nonicteric. Moist mucous membranes. EXT: Continues to have generalized swelling and erythema RLE extending to the Rt hip area. mild TTP. Area of ecchymosis Rt groin area related to previous procedure. SKIN: [place], dry, warm. Good Capillary refill. No rashes. NEURO: Alert and oriented x 3. Cranial nerves III-XII are intact. No focal deficits appreciated. LE US IMPRESSION: Heterogeneously hypoechoic, occlusive thrombus in the common femoral, femoral and popliteal veins. Electronically signed by: Edison Almanzar On 01/13/2019 20:25:09 PM CTA IMPRESSION: 1. No acute arterial abnormality. 2. Prominence of the inferior vena cava, as well as the right iliac veins and right lower extremity venous system with associated perivascular edema, likely related to underlying deep venous thrombosis, suboptimally evaluated due to the phase of contrast-enhancement. 3. Moderate right lower extremity soft tissue swelling and subcutaneous edema, most pronounced about the thigh. No organized collection. 4. Additional findings, as above. Electronically signed by: Edison Almanzar On 01/13/2019 21:31:27 PM A&P: 1. Bilateral lower extremity DVT 2/2 anti-thrombin III deficiency IVC filter in place. Recommend start Lovenox 1 mg /KG Q12 and d/c Heparin gtt. Continue pain control. Dr Winn has reviewed and examined pt as well as current CTA images. The pt's RLE appears to be well perfused, no phlegmasia noted. The pt is not felt to be a candidate for any additional intervention. Dr Lin has re evaluated the pt today, recommend continue with conservative mgmt. Elevation RLE. Pain control. 2. anti-thrombin III deficiency. States has previously been on Coumadin in past but despite high doses was not therapeutic. Previously failed Eliquis. Follows as outpt with [facility] Hematology, previously saw Dr Steward. Since pt has failed both Coumadin and NOAC, recommendation for lifelong Lovenox. As above, may transition from Heparin gtt to Lovenox at this point. 3. H/O recurrent DVT/PE, S/P IVC filter 2012. 4. Tobacco use. Would strongly recommend cessation. 01/17/19 Pt seen and examined and I agree with above. RLE should be elevated above the level of the heart as much as possible to help with venous return. Today, I elevated the end of the bed up on the bar, which gives more elevation than the automated bed elevator which mostly just elevates the knee area and leaves the foot dependent. Pt says this felt comfortable. Symptoms improved with elevation. She does have some erythema RLE and R flank, but this is not unexpected with RLE DVT and IVC occlusion. As her collateral venous circulation improves, this shou ld also start to improve. She does not tolerate compression, so elevation is leung. Ok to restart lovenox BID and d/c heparin gtt. Dr Winn is back tomorrow and further recommendations per him prn. Pamela Lin MD VS, I&O, 24H, [place] Vital Signs/I&O Vital Signs Date Time Temp Pulse Resp B/P (MAP) Pulse Ox O2 Delivery O2 Flow Rate FiO2 01/17/19 11:47 18 01/17/19 08:00 97.5 96 125/70 (88) 98 01/17/19 06:00 Room Air 01/14/19 03:48 18.0 I&O- Last 24 Hours up to 6 AM 01/17/19 06:00 Intake Total 1956 ml Output Total 1500 ml Balance 456 ml Laboratory Data 24H LABS Laboratory Tests 2 01/16/19 13:08: Activated Partial Thromboplast Time 46.7H, Anion Gap 7L, Glomerular Filtration Rate > 60.0, Blood Urea Nitrogen 5L, Creatinine 0.67, Sodium Level 132L, Potassium Level 3.3#L, Chloride Level 96L, Carbon Dioxide Level 29, Calcium Level 8.5 01/16/19 22:36: Activated Partial Thromboplast Time 91.8H 01/17/19 04:38: Anion Gap 5L, Glomerular Filtration Rate > 60.0, Blood Urea Nitrogen 6L, Creatinine 0.68, Sodium Level 134L, Potassium Level 3.7, Chloride Level 98, Carbon Dioxide Level 31, Calcium Level 8.6, Immature Granulocyte % (Auto) , Nucleated Red Blood Cells % (auto) 0.0, Neutrophils 65, Band Neutrophils 1, Lymphocytes (Manual) 22, Monocytes (Manual) 7, Eosinophils (Manual) 2, Basophils (Manual) 1, Metamyelocytes 2H, Platelet Estimate NORMAL, Aspartate Amino Transf (AST/SGOT) 39H, Alanine Aminotransferase (ALT/SGPT) 94H, Alkaline Phosphatase 282H, Total Bilirubin 0.4, Total Protein 6.9, Albumin 2.0L, Magnesium Level 2.3, Albumin/Globulin Ratio 0.41L 01/17/19 04:39: Activated Partial Thromboplast Time 79.7H CBC/BMP Laboratory Tests 01/16/19 13:08 Calcium Level 8.5 01/17/19 04:38 Calcium Level 8.6, Red Blood Count 3.79 L, Mean Corpuscular Volume 92.3, Mean Corpuscular Hemoglobin 30.6, Mean Corpuscular Hemoglobin Concent 33.1, Red Cell Distribution Width 12.9, Aspartate Amino Transf (AST/SGOT) 39 H, Alanine Aminotransferase (ALT/SGPT) 94 H, Alkaline Phosphatase 282 H, Total Bilirubin 0. 4, Total Protein 6.9, Albumin 2.0 L Microbiology Microbiology 01/14/19 Blood Culture - Preliminary, Resulted No Growth after 48 hours. All Specime... 01/14/19 Blood Culture - Preliminary, Resulted No Growth after 48 hours. All Specime... 01/15/19 Genital Culture, Received Pending Grace Tapia Jan 17, 2019 11:56 PAMELA LIN MD Jan 17, 2019 15:42
[2019-01-17] MEDS: MIRALAX *UNIT DOSE* 17GM PACKET PO PRN (12:37)
[2019-01-18] VITALS (12 sets, daily range): BP systolic 111–128; BP diastolic 58–68; O2SAT 93–100
[2019-01-18] MEDS: oxyCODONE 5MG TAB PO PRN ×5 (01:56→17:19)
[2019-01-18] MEDS: HEPARIN DRIP 25,000 UNITS in APPROPRIATE DILUENT 1 EA IV SCH (03:10)
[2019-01-18] MEDS: HYDROmorphone HCL 2 MG/ML 1ML VIAL (J1170) IV PRN ×5 (03:13→17:45)
[2019-01-18 06:24] LABS: HEMATOCRIT 34.7 % (36.0-47.0); HEMOGLOBIN 11.3 g/dl (12.0-15.5); MEAN CORPUSCULAR HEMOGLOBIN 30.1 pg (27.0-33.0); MEAN CORPUSCULAR HGB CONC 32.6 g/dl (32.0-36.5); MEAN CORPUSCULAR VOLUME 92.5 fl (80.0-96.0); PLATELET COUNT, AUTOMATED 185 10^3/uL (150-450); RED BLOOD COUNT 3.75 10^6/uL (4.00-5.40); WHITE BLOOD COUNT 12.2 10^3/uL (4.0-10.0)
[2019-01-18 06:52] LABS: ALBUMIN 2.2 GM/DL (3.2-5.2); ALT/SGPT 69 U/L (12-78); BILIRUBIN,TOTAL 0.5 MG/DL (0.2-1.0); BLOOD UREA NITROGEN 5 MG/DL (7-18); CALCIUM LEVEL 8.4 MG/DL (8.5-10.1); CARBON DIOXIDE LEVEL 30 MEQ/L (21-32); CHLORIDE LEVEL 100 MEQ/L (98-107); CREATININE FOR GFR 0.78 MG/DL (0.55-1.30); GLOMERULAR FILTRATION RATE > 60.0 (>60); GLUCOSE, FASTING 93 MG/DL (70-100); POTASSIUM SERUM 3.7 MEQ/L (3.5-5.1); SODIUM LEVEL 136 MEQ/L (136-145); TOTAL PROTEIN 6.9 GM/DL (6.4-8.2)
[2019-01-18 07:38] LABS: EOSINOPHILS 3 % (0-5); LYMPHOCYTES 21 % (16-52); METAMYELOCYTES 3 % (0-0); MONOCYTES 4 % (0-8); MYELOCYTES 1 % (0-0); NEUTROPHILS 68 % (35-75)
[2019-01-18 07:39] LABS: PLATELET ESTIMATE NORMAL (NORMAL)
[2019-01-18] MEDS: BISACODYL 10 MG SUPP PR SCH (09:00)
[2019-01-18] MEDS: SENOKOT S TAB PO SCH ×2 (09:32→21:00)
[2019-01-18] MEDS: metroNIDAZOLE (FLAGYL) 500 MG TAB PO SCH ×2 (09:32→21:32)
[2019-01-18] MEDS: GABAPENTIN 400 MG CAP PO SCH ×3 (09:32→21:33)
--- NOTE | 2019-01-18 10:07 | IPNPDOC ---
Subjective Date Seen The patient was seen on 01/18/19. Subjective Chief Complaint/HPI DVT Events since last encounter S/p re-eval with vascular yesterday. Continues with severe pain. Vascular recommends time for collaterals to build, elevate leg above heart and pain medications accordingly. Skin: Denies: Rash, Lesions, Breakdown Pulmonary: Denies: Dyspnea, Cough Cardiovascular: Denies: Chest Pain, Palpitations, Orthopnea, Paroxysmal Noc. Dyspnea, Lt Headedness Gastrointestinal: Denies: Nausea, Vomiting, Abdominal Pain, Diarrhea, Constipation Psych: Reports: Anxiety (crying in pain and frustration) Objective Physical Examination General Exam: Positive: Alert, Cooperative, No Acute Distress ENT Exam: Positive: Mucous membr. moist/pink Neck Exam: Positive: Supple Chest Exam: Positive: Clear to auscultation, Normal air movement Heart Exam: Positive: Rate Normal, Normal S1, Normal S2 Abdomen Exam: Positive: Normal bowel sounds, Soft; Negative: Tenderness Extremity Exam: Positive: Edema (swelling up past thigh and hip into right trunk. red, warm tender. ) Skin Exam: Positive: Rash (red right leg, especially over medial thigh: orange peel appearance) Neuro Exam: Positive: Normal Speech Psych Exam: Positive: Mood NL Assessment /Plan Problems (1) Deep vein thrombosis of right lower extremity Status: Acute Problem Specific Plan: Monitor Clinically Problem Text: 01/18/19: Not candidate for thrombectomy after eval by 2 different vascular surgeons. Transition to Lovenox from heparin gtt. ? mechanical thrombectomy candidate 01/17/19: Currently with heparin drip. erythema and pain extending up into abdomen/trunk. Will contact vascular. 01/14/19 1700 co severe 10/10 RLE pain, minimal relief c MSO4 5 IV; therefore, changed to HM 1-1.[address] Winn has been consulted, at this time he doesn't feel further intervention is appropriate. He recommends pain control, elevation of the leg and continued anticoagulation, which she will need lifelong. 01/13 RLE venous US: FINDINGS: Right deep veins: Heterogeneously hypoechoic, occlusive thrombus in the common femoral, femoral and popliteal veins. Soft tissues: Soft tissue swelling. IMPRESSION: Heterogeneously hypoechoic, occlusive thrombus in the common femoral, femoral and popliteal veins. 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 transaminases slightly better, alk phos a little higher. cw acute mild hepatitis, check mcgill; no RUQ pain 01/14/19 liver US cw fatty liver 01/14/19 127/255/218 (decreased cw 01/13/19) 11/03/18 21/32/71 (4) Antithrombin III deficiency Status: Chronic Response to Treatment: Stable Problem Specific Plan: Monitor Clinically Problem Text: Lifelong anticoag with enoxaparin d/t failure on Coumadin and Eliquis (5) Vaginal discharge Status: Acute Problem Specific Plan: Monitor Clinically Problem Text: 01/16: identified T vaginalis, Rx ordered. Discussed STD issues. Culture ordered; collected dna vaginitis probe and urine for gc/chlamydia/trich. patient says it doesn't feel like yeast which she has had before. (6) Leukocytosis Status: Acute Problem Text: 01/17/19: WBC 13,000 01/16 no cbc ordered for today 01/14 16.4 (01/11 10), 1600 temp to 100.1, check BCX, UCX, tc CT AP 01/14 BCX2 NG 01/13 CTA chest: IMPRESSION: 1. No acute arterial abnormality. 2. Prominence of the inferior vena cava, as well as the right iliac veins and right lower extremity venous system with associated perivascular edema, likely related to underlying deep venous thrombosis, suboptimally evaluated due to the phase of contrast-enhancement. Plan/VTE VTE Prophylaxis Ordered?: Yes Plan Anticipated Discharge: Home VS, I&O, [facility] Vital Signs/I&O Vital Signs Date Time Temp Pulse Resp B/P (MAP) Pulse Ox O2 Delivery O2 Flow Rate FiO2 01/18/19 09:33 20 01/18/19 08:00 98.6 90 111/59 (76) 91 01/18/19 06:00 Room Air 01/14/19 03:48 18.0 I&O- Last 24 Hours up to 6 AM 01/18/19 06:00 Intake Total 2845 ml Output Total 0 ml Balance 2845 ml Laboratory Data 24H LABS Laboratory Tests 2 01/18/19 06:08: Immature Granulocyte % (Auto) , Nucleated Red Blood Cells % (auto) 0.0, Neutrophils 68, Lymphocytes (Manual) 21, Monocytes (Manual) 4, Eosinophils (Manual) 3, Metamyelocytes 3H, Myelocytes 1H, Platelet Estimate NORMAL, Red Blood Cell Morphology NORMAL, Activated Partial Thromboplast Time 67.8H, Anion Gap 6L, Glomerular Filtration Rate > 60.0, Blood Urea Nitrogen 5L, Creatinine 0.78, Sodium Level 136, Potassium Level 3.7, Chloride Level 100, Carbon Dioxide Level 30, Calcium Level 8.4L, Aspartate Amino Transf (AST/SGOT) 24, Alanine Aminotransferase (ALT/SGPT) 69, Alkaline Phosphatase 234H, Total Bilirubin 0.5, Total Protein 6.9, Albumin 2.2L, Albumin/Globulin Ratio 0.47L CBC/BMP Laboratory Tests 01/18/19 06:08 Red Blood Count 3.75 L, Mean Corpuscular Volume 92.5, Mean Corpuscular Hemoglobin 30.1, Mean Corpuscular Hemoglobin Concent 32.6, Red Cell Distribution Width 12.9, Calcium Level 8.4 L, Aspartate Amino Transf (AST/SGOT) 24, Alanine Aminotransferase (ALT/SGPT) 69, Alkaline Phosphatase 234 H, Total Bilirubin 0.5, Total Protein 6.9, Albumin 2.2 L Microbiology Microbiology 01/14/19 Blood Culture - Preliminary, Resulted No Growth after 72 hours. All specime... 01/14/19 Blood Culture - Preliminary, Resulted No Growth after 72 hours. All specime... 01/15/19 Genital Culture - Final, Complete Criselda BenitezP Jan 18, 2019 10:07
[2019-01-18] MEDS: ENOXAPARIN 100MG/1ML SYRINGE (J1650) SC SCH ×2 (11:11→23:40)
--- NOTE | 2019-01-18 16:55 | CR ---
DATE OF CONSULTATION: 01/18/2019 CHIEF COMPLAINT: Right leg and right low back pain. REFERRING PROVIDER: Criselda Benitez HISTORY OF PRESENT ILLNESS: Buffy is a 33-year-old female who was admitted for the second time this month for uncontrolled pain and found to have a complicated deep vein thrombosis (DVT) that has not responded to anticoagulant therapy. Rating pain level as an 8/10 over right thigh and low back area. CURRENT MEDICATIONS: Of Dilaudid 1.6 mg intravenous (IV) is helpful for about a half an hour and the pain creeps back in at a high level. She is anxious to go home. She has had morphine before that has been she feels more effective than what she currently is receiving. She is asking to be on just pain medicine for a short time as she has a fear of addiction. No prior history of addiction disorder. States bowel and bladder are functioning within normal limits. REVIEW OF SYSTEMS: 11-point review of systems is negative except as stated in the history of the present illness. PAST MEDICAL HISTORY: Recurrent pulmonary embolism (PE) and DVT and asthma. SURGICAL HISTORY: IVCP replaced in 2011, cystectomy in 2013, section () times four, tonsillectomy, antithrombin III deficiency with recurrent blood clot. FAMILY HISTORY: Mother, sister and dad have had blood clots. PHYSICAL EXAMINATION: Awake, alert. Affect is constricted. Vital signs: Temperature 97.8, pulse 96, respiratory rate 21, blood pressure 117/58, oxygen saturation is 97%. Cardiac: S1, S2, normal rate and rhythm. Respiratory: Lung sounds are clear. Respirations nonlabored. Inspection - right lower extremity with marked edema and redness in the thigh as well as over the low back and right hip area. 4/4 nonpitting edema noted right foot. Reporting normal sensation to light touch except for right heel, which she states is numb. ASSESSMENT: Acute on chronic right leg pain secondary to thrombophlebitis. PLAN: I would recommend a trial of MSIR morphine sulfate instant release 15 mg one every 4 hours as needed for pain. Consider trial of tizanidine 2 mg every 6 hours on a scheduled basis. Thank you for allowing us to participate in the care of your patient. Please contact us if she needs reevaluation at any point for pain control.
[2019-01-18] MEDS ORDERED: PILL CUTTER 1 EACH XX PRN (19:00)
[2019-01-18] MEDS: tiZANidine 4 MG TAB PO SCH (19:38)
[2019-01-18] MEDS: MORPHINE 30 MG TAB **MSIR PO PRN ×2 (19:39→23:40)
[2019-01-19] MEDS: MORPHINE 30 MG TAB **MSIR PO PRN ×3 (03:35→12:21)
[2019-01-19 04:00] VITALS: BP 124/60
[2019-01-19 06:18] LABS: HEMATOCRIT 31.5 % (36.0-47.0); HEMOGLOBIN 10.2 g/dl (12.0-15.5); MEAN CORPUSCULAR HEMOGLOBIN 29.1 pg (27.0-33.0); MEAN CORPUSCULAR HGB CONC 32.4 g/dl (32.0-36.5); MEAN CORPUSCULAR VOLUME 89.7 fl (80.0-96.0); PLATELET COUNT, AUTOMATED 208 10^3/uL (150-450); RED BLOOD COUNT 3.51 10^6/uL (4.00-5.40); WHITE BLOOD COUNT 10.1 10^3/uL (4.0-10.0)
[2019-01-19 06:46] LABS: ALT/SGPT 48 U/L (12-78); BILIRUBIN,TOTAL 0.3 MG/DL (0.2-1.0); BLOOD UREA NITROGEN 4 MG/DL (7-18); CALCIUM LEVEL 8.5 MG/DL (8.5-10.1); CARBON DIOXIDE LEVEL 29 MEQ/L (21-32); CHLORIDE LEVEL 103 MEQ/L (98-107); CREATININE FOR GFR 0.66 MG/DL (0.55-1.30); GLOMERULAR FILTRATION RATE > 60.0 (>60); GLUCOSE, FASTING 97 MG/DL (70-100); POTASSIUM SERUM 3.8 MEQ/L (3.5-5.1); SODIUM LEVEL 139 MEQ/L (136-145); TOTAL PROTEIN 6.4 GM/DL (6.4-8.2)
[2019-01-19 06:47] LABS: EOSINOPHILS 2 % (0-5); LYMPHOCYTES 23 % (16-52); MONOCYTES 5 % (0-8); NEUTROPHILS 70 % (35-75)
[2019-01-19 06:48] LABS: PLATELET ESTIMATE NORMAL (NORMAL)
[2019-01-19] MEDS ORDERED: MORPHINE 4 MG/ML 1ML VIAL/SYRINGE (J2270) IV ONE (07:30)
[2019-01-19 08:00] VITALS: BP 117/60
[2019-01-19] MEDS: BISACODYL 10 MG SUPP PR SCH (09:00)
[2019-01-19] MEDS: SENOKOT S TAB PO SCH (09:00)
[2019-01-19] MEDS: GABAPENTIN 400 MG CAP PO SCH (09:58)
[2019-01-19] MEDS: tiZANidine 4 MG TAB PO SCH ×2 (09:59→12:20)
[2019-01-19] MEDS: metroNIDAZOLE (FLAGYL) 500 MG TAB PO SCH (09:59)
[2019-01-19] MEDS ORDERED: MSIR30TA PO (11:13)
[2019-01-19 12:00] VITALS: BP 105/55
[2019-01-19] MEDS: ENOXAPARIN 100MG/1ML SYRINGE (J1650) SC SCH (12:20)
--- NOTE | 2019-01-20 13:07 | DSES ---
DATE OF ADMISSION: 01/14/2019 DATE OF DISCHARGE: 01/19/2019 PRIMARY CARE PROVIDER: Yaritza Richardson NP, and Henry Dash MD ATTENDING PHYSICIAN: Rock Chery MD VASCULAR SURGEON: Dell Winn MD, and Pamela Lin MD HISTORY OF PRESENT ILLNESS: This is a 33-year-old female with a past medical history of antithrombin III deficiency and recurrent deep venous thrombosis (DVT), as well as pulmonary embolism in the past. The patient presented to [facility] Emergency Department for worsening pain and swelling of the right lower extremity. The patient was on Eliquis at the time of her complaint and was found to have an extensive DVT at prior hospitalization on 01/06/2019. Presentation at the ED on 01/14/2019 proved continuing to have worsening pain despite Lovenox treatment at home. HOSPITAL COURSE: The patient was treated with a heparin drip initially. She was consulted with vascular, which determined no surgical intervention necessary at that time. The patient's hospitalization was extended secondary to poor pain control and difficulty with increased and worsening swelling. Vascular continued to follow the patient throughout hospitalization and recommended simple elevation, conservative management until collaterals were built. The patient is also status post pain management consultation. She was transitioned over to MSIR 15 mg every 4 hours as needed for pain with significant improvement, along with tizanidine 2 mg every 6 hours. The patient has tolerated this well. She has passed physical therapy evaluation and is anxious to return home. On physical examination, swelling has continued to decrease on the right lower extremity. She does continue to have some erythema and swelling up into the right hip which is less tender and less prominent today compared to the days prior, and she feels that her pain is tolerable at this time. Cardiovascular: Heart rate and rhythm are regular. Pulmonary: Lungs are clear. Abdomen: Is soft and nontender. Neurologic: She is alert and oriented times three. Psychiatric: The patient is mildly anxious. Affect is appropriate. She does maintain eye contact, and conversation is congruent. ASSESSMENT: 1. Antithrombin III deficiency. 2. Deep venous thrombosis of the right lower extremity. PLAN: The patient will be discharged to home. She is to followup with her primary care provider within the next 3-5 days. Activity is as tolerated. She will followup the vascular surgeon within the next 1-2 weeks. Diet is as tolerated. Medications are as follows: Morphine sulfate 30 mg tablet, 1/2 tablet by mouth every 4 hours as needed for severe pain, maximum daily dose of six doses, and she was given a 5-day course. Other medications include albuterol sulfate as needed, cyclobenzaprine 10 mg by mouth three times a day as needed, Lovenox 100 mg subcutaneous every 12 hours (this will be a lifetime medication - the patient is aware and demonstrated ability to provide the injection), gabapentin 800 mg by mouth three times a day. The patient is discharged in stable and satisfactory condition with no further questions at the time of discharge.
== END 2019-01-19 13:33 | disposition home or self-care (01) | DRG 197 ==
LOC: M ED 17:54 → M ED INP 01-14 02:06 → M PCU 01-14 03:24
PROVIDERS: ADMIT Hospitalist; ATTEND Family Medicine
DX: I82.411 Acute embolism and thrombosis of right femoral vein (principal); D68.59 Other primary thrombophilia; I82.431 Acute embolism and thrombosis of right popliteal vein; E66.01 Morbid (severe) obesity due to excess calories; N89.8 Other specified noninflammatory disorders of vagina; Z87.891 Personal history of nicotine dependence; Z95.828 Presence of other vascular implants and grafts; Z86.711 Personal history of pulmonary embolism; Z68.34 Body mass index [BMI] 34.0-34.9, adult

== ENCOUNTER → 2023-10-01 | Outpatient (CLI) | payer OTHER ==
[~2023-10-01] MED LIST changes: +CYCL-707 PO; -CYCL10TA PO; +ENOX100I3; +MSIR30TA PO; +OXYC1TAB23; +OXYC1TAB23 PO
[2023-10-01 13:37] LABS: HEMATOCRIT 41.2 % (36.0-47.0); HEMOGLOBIN 13.4 g/dl (12.0-15.5); MEAN CORPUSCULAR HEMOGLOBIN 30.6 pg (27.0-33.0); MEAN CORPUSCULAR HGB CONC 32.5 g/dl (32.0-36.5); MEAN CORPUSCULAR VOLUME 94.1 fl (80.0-96.0); PLATELET COUNT, AUTOMATED 253 10^3/uL (150-450); RED BLOOD COUNT 4.38 10^6/uL (4.00-5.40); WHITE BLOOD COUNT 7.7 10^3/uL (4.0-10.0)
[2023-10-01 14:00] LABS: HEMOGLOBIN A1c 5.1 % (4.0-6.0)
[2023-10-01 14:14] LABS: ALKALINE PHOSPHATASE 107 U/L (46-116); ALT/SGPT 23 U/L (7.0-40); AST/SGOT 15 U/L (<34); BILIRUBIN,TOTAL 0.5 MG/DL (0.3-1.2); BLOOD UREA NITROGEN 10 MG/DL (9-23); CALCIUM LEVEL 8.8 MG/DL (8.5-10.1); CARBON DIOXIDE LEVEL 25 MMOL/L (20-31); CHLORIDE LEVEL 108 MMOL/L (98-107); CHOLESTEROL LEVEL 118 MG/DL (<200); CHOLESTEROL RISK RATIO 2.19 (<5); CREATININE FOR GFR 0.63 MG/DL (0.55-1.30); FREE T4 0.84 NG/DL (0.89-1.76); GLOMERULAR FILTRATION RATE > 60.0 (>60); GLUCOSE, FASTING 114 MG/DL (60-100); HDL CHOLESTEROL 53.8 MG/DL (>40); NON-HDL-C 64.2 MG/DL; POTASSIUM SERUM 4.4 MMOL/L (3.5-5.1); SODIUM LEVEL 139 MMOL/L (136-145); TOTAL PROTEIN 7.1 G/DL (5.7-8.2); TRIGLYCERIDES LEVEL 111 MG/DL (<150)
[2023-10-01 14:17] LABS: VITAMIN B12 LEVEL 346 PG/ML (211-911)
[2023-10-01 14:47] LABS: HIV 1&2 SCREEN NEGATIVE (NEGATIVE)
[2023-10-01 14:54] LABS: HEPATITIS C VIRUS ABY INDEX < 0.02 INDEX (<0.8)
[2023-10-01 14:56] LABS: FOLATE 12.2 NG/ML (>5.4)
== END ==
LOC: M LAB 12:15
PROVIDERS: ATTEND Physician Assistant
DX: Z00.01 Encounter for general adult medical examination with abnormal findings (principal); Z98.84 Bariatric surgery status

== ENCOUNTER → 2023-10-13 | Outpatient (CLI) | payer OTHER | LOC: M RAD 12:24 | PROVIDERS: ATTEND Physician Assistant | DX: R10.2 Pelvic and perineal pain (principal); N83.201 Unspecified ovarian cyst, right side ==